=== PATIENT | female | born 1995 | race African-American/Black ===

== ENCOUNTER 2017-03-30 22:16 | Emergency (ER) | payer MEDICAID ==
[2017-03-30] MEDS ORDERED: IBUPROFEN 800 MG TABLET PO ONE (22:59)
[2017-03-30] MEDS ORDERED: ONDANSETRON 4 MG TAB.RAPDIS PO ONE (23:08)
--- NOTE | 2017-03-30 23:11 | ER Document Report ---
HPI - HPI Patient complains to provider of: headache, body ache, sore throat, fatique, nausea Onset: This morning Onset/Duration: Sudden Quality of pain: Achy Severity: Severe Pain Level: 4 Context: Patient presents with multiple complaints including headache body aches sore throat tired and nauseated. She reports she vomited one time today. Reports symptoms started today. Patient works 2 jobs. Is unsure of any type of sick exposure. Denies fever and diarrhea. Denies cough, pain with void denies urinary frequency. Associated Symptoms: Body/muscle aches, Headache, Nausea, Vomiting, Sore throat Exacerbated by: Denies Relieved by: Denies Similar symptoms previously: No Recently seen / treated by doctor: No - REPRODUCTIVE LMP: 03-30-17 Reproductive: DENIES: : - DERM Skin Color: Normal Past Medical History - General Information source: Patient Last Menstrual Period: 03/04/17 - Social History Smoking Status: Unknown if Ever Smoked Cigarette use (# per day): No Frequency of alcohol use: None Drug Abuse: None Occupation: [employer] Lives with: Family - boyfriend Family History: Reviewed & Not Pertinent Patient has suicidal ideation: No Patient has homicidal ideation: No Pulmonary Medical History: Reports: Hx Asthma Renal/ Medical History: Denies: Hx Peritoneal Dialysis Psychiatric Medical History: Reports: Hx Anxiety, Hx Attention Deficit Hyperactivity Disorder Comment Only: Hx Depression - Patient denies a history of depression Surgical Hx: Negative - Immunizations Immunizations up to date: Yes Hx Diphtheria, Pertussis, Tetanus Vaccination: Yes Vertical Provider Document - CONSTITUTIONAL Agree With Documented VS: Yes Exam Limitations: No Limitations General Appearance: WD/WN, No Apparent Distress - nontoxic looking - INFECTION CONTROL TRAVEL OUTSIDE OF THE [place] IN LAST 30 DAYS: No - HEENT HEENT: Atraumatic, Normocephalic, Pharyngeal Erythema - tonsillar hypertrophy. negative: Conjuctival Injection, Pharyngeal Exudate, Tympanic Membrane Red, Tympanic Membrane Bulging - NECK Neck: Normal Inspection, Supple. negative: Lymphadenopathy-Left, Lymphadenopathy-Right - RESPIRATORY Respiratory: Breath Sounds Normal, No Respiratory Distress O2 Sat by Pulse Oximetry: 100 - CARDIOVASCULAR Cardiovascular: Regular Rhythm, Tachycardia - GI/ABDOMEN Gastrointestinal: Abdomen Soft, Abdomen Non-Tender - BACK Back: Normal Inspection - MUSCULOSKELETAL/EXTREMETIES Musculoskeletal/Extremeties: KETTY TERRAZAS - NEURO Level of Consciousness: Awake, Alert, Appropriate Motor/Sensory: No Motor Deficit - DERM Integumentary: Warm, Dry Course - Re-evaluation Re-evalutation: 03/30/17 23:51 Instructed on negative strep throat culture pending. Instructed on Motrin. Patient looks better resting quietly no distress. - Vital Signs Vital signs: Temp Pulse Resp BP Pulse Ox 100.1 F 109 H 16 126/81 H 100 03/30/17 22:21 03/30/17 22:21 03/30/17 22:21 03/30/17 22:21 03/30/17 22:21 Discharge - Discharge Clinical Impression: Body aches, Sore throat, Headache Condition: Stable Disposition: HOME, SELF-CARE Instructions: Headache ([facility]), Sore Throat ([facility]), Ibuprofen (General) ([facility]) Additional Instructions: *You have been evaluated for a body aches, sore throat, *Take medication as prescribed *Warm salt water gargles and throat lozenges for comfort *Change toothbrush after two days of antibiotics *Do not let anyone drink/eat after you *Good hand washing *Follow-up with a primary care provider *Return to ED for worsening condition change, needs Monitor your blood pressure. Your blood pressure was elevated today. This may be because you were anxious, in pain or because you need medication. It is important to follow up with your primary care provider for full evaluation. Prescriptions: Ibuprofen [Motrin 800 mg Tablet] 800 mg PO TID #30 tablet Forms: Elevated Blood Pressure
[2017-03-31] VITALS: BP 118/78
== END 2017-03-31 | disposition home or self-care (01) ==
LOC: ER 22:16
DX: J02.9 Acute pharyngitis, unspecified (principal); M79.1 Myalgia; R51 Headache; R11.0 Nausea; R53.83 Other fatigue
CPT/HCPCS: 99284; 87070; 87880; J3490; S0119

== ENCOUNTER 2018-04-03 21:18 | Outpatient (CLI) | payer MEDICAID ==
[2018-04-03 22:18] LABS: APPEARANCE,URINE SLIGHTLY-CLOUDY; BILIRUBIN,URINE NEGATIVE (NEGATIVE); COLOR,URINE YELLOW; GLUCOSE, URINE NEGATIVE (NEGATIVE); KETONES,URINE TRACE mg/dL (NEGATIVE); LEUKOCYTE ESTERASE,URINE LARGE (NEGATIVE); NITRITE,URINE NEGATIVE (NEGATIVE); PROTEIN,URINE NEGATIVE (NEGATIVE); URINE SPECIFIC GRAVITY 1.014
[2018-04-03 22:33] LABS: URINE AMPHETAMINES SCREEN NEGATIVE; URINE BARBITURATES SCREEN NEGATIVE; URINE BENZODIAZEPINES SCREEN NEGATIVE; URINE COCAINE SCREEN NEGATIVE; URINE MARIJUANA (THC) SCREEN NEGATIVE; URINE METHADONE SCREEN NEGATIVE; URINE PHENCYCLIDINE SCREEN NEGATIVE
[2018-04-04] MEDS ORDERED: HYDROXYZINE PAMOATE 50 MG CAPSULE PO ONE (00:57)
[2018-04-04] MEDS ORDERED: HYDROXYZINE PAMOATE 50 MG CAPSULE ONE (01:36)
--- NOTE | 2018-04-04 03:27 | Non Stress Test Report ---
Non Stress Test Datetime Report Generated by CPN: 04/04/2018 03:27 DEMOGRAPHIC EGA NST: 39.1 INDICATION Indication for Study: Ordered by Provider Indication for Study (NST) Other: LC URINE RESULTS Urine Protein, NST: Negative Urine Ketones - NST: Positive Urine Glucose - NST: Negative Urine Blood - NST: Negative MONITORING Time on Monitor: 04/03/2018 21:41 Time off Monitor: 04/04/2018 01:37 NST Duration: 236 NST INTERVENTIONS NST Interventions: PO Hydration Physician Notified NST: George BABY A: [id number] BABY A Movement : Present Contraction Frequency : 1-5, irregular FHR Baseline : 140 Accelerations : 15X15 Decelerations : None Variability : Moderate 6-25bpm NST Review: Meets Criteria for Reactive NST NST Review: Meets Criteria for Reactive NST NST Review and Verified By : ISAURO Angealhawa NST Results: Reactive NST COMMENTS NST Comments: Dr George on unit, strip reviewed by Dr George. NST REPORT Report Trigger: Send Report
== END 2018-04-04 01:46 | disposition home or self-care (01) ==
LOC: LC 21:18
PROVIDERS: ATTEND Obstetrics & Gynecology
PROC: 4A1HXCZ Monitoring of Products of Conception, Cardiac Rate, External Approach (ICD-10-PCS; principal; 2018-04-03)
DX: O47.1 False labor at or after 37 completed weeks of gestation (principal); Z3A.39 39 weeks gestation of pregnancy
CPT/HCPCS: 59025; 81005; 87077; 87081; 80307; J3490

== ENCOUNTER 2018-04-08 16:33 | Outpatient (CLI) | payer MEDICAID ==
[2018-04-08 17:31] LABS: APPEARANCE,URINE CLEAR; BILIRUBIN,URINE NEGATIVE (NEGATIVE); COLOR,URINE YELLOW; GLUCOSE, URINE NEGATIVE (NEGATIVE); KETONES,URINE NEGATIVE (NEGATIVE); LEUKOCYTE ESTERASE,URINE SMALL (NEGATIVE); NITRITE,URINE NEGATIVE (NEGATIVE); PROTEIN,URINE NEGATIVE (NEGATIVE); URINE SPECIFIC GRAVITY 1.006; UROBILINOGEN,URINE NEGATIVE mg/dL (<2.0)
[2018-04-08 17:53] LABS: URINE AMPHETAMINES SCREEN NEGATIVE; URINE BARBITURATES SCREEN NEGATIVE; URINE BENZODIAZEPINES SCREEN NEGATIVE; URINE COCAINE SCREEN NEGATIVE; URINE MARIJUANA (THC) SCREEN NEGATIVE; URINE METHADONE SCREEN NEGATIVE; URINE PHENCYCLIDINE SCREEN NEGATIVE
--- NOTE | 2018-04-08 19:05 | Non Stress Test Report ---
Non Stress Test Datetime Report Generated by CPN: 04/08/2018 19:05 DEMOGRAPHIC EGA NST: 39.5 INDICATION Indication for Study: Ordered by Provider Indication for Study (NST) Other: LABOR CHECK VITAL SIGNS Temperature - NST: 98.2 Pulse - NST: 90 RESP - NST: 18 NBPSYS NST: 127 NBPDIA NST: 70 MONITORING Monitor Explained: Monitor Explained; Test Explained; Patient Verbalized Understanding Time on Monitor: 04/07/2018 16:49 Time off Monitor: 04/08/2018 18:15 NST Duration: 1526 NST INTERVENTIONS NST Interventions: PO Hydration; Reposition Patient Physician Notified NST: DR GEE Physician Notified NST: Dr Gee BABY A: [id number] BABY A Movement : Present Contraction Frequency : irregular FHR Baseline : 135 Accelerations : 15X15 Decelerations : None Variability : Moderate 6-25bpm NST Review: Meets Criteria for Reactive NST NST Review and Verified By : SHIN VERA, RN NST Results: Reactive NST REPORT Report Trigger: Send Report
== END 2018-04-08 19:42 | disposition home or self-care (01) ==
LOC: LC 16:33
PROVIDERS: ATTEND Student in an Organized Health Care Education/Training Program
PROC: 4A1HXCZ Monitoring of Products of Conception, Cardiac Rate, External Approach (ICD-10-PCS; principal; 2018-04-08)
DX: O47.1 False labor at or after 37 completed weeks of gestation (principal); Z3A.39 39 weeks gestation of pregnancy
CPT/HCPCS: 80307; 81005

== ENCOUNTER 2018-04-09 10:29 | Inpatient (IN) | payer MEDICAID ==
[2018-04-09] MEDS ORDERED: RINGERS SOLUTION,LACTATED 1,000 ML IV PRN (11:33)
[2018-04-09] MEDS ORDERED: RINGERS SOLUTION,LACTATED 300 ML IV ONE (11:33)
[2018-04-09] MEDS ORDERED: OXYTOCIN/NORMAL SALINE 20 UNIT/1,000 ML RTUINJ IV PRN ×3 (11:33→16:36)
[2018-04-09] MEDS ORDERED: DINOPROSTONE 10 MG VAGINAL INSERT.SR PV PRN (11:33)
[2018-04-09] MEDS ORDERED: LABETALOL HCL INJ 20 MG/4 ML DISP.SYRIN IV PRN (11:38)
[2018-04-09] MEDS ORDERED: DINOPROSTONE 10 MG VAGINAL INSERT.SR ONE (11:53)
--- NOTE | 2018-04-09 12:34 | Non Stress Test Report ---
Non Stress Test Datetime Report Generated by CPN: 04/09/2018 12:34 DEMOGRAPHIC EGA NST: 39.6 INDICATION Indication for Study: Ordered by Provider MONITORING Monitor Explained: Monitor Explained; Test Explained; Patient Verbalized Understanding Time on Monitor: 04/09/2018 10:51 Time off Monitor: 04/09/2018 12:31 NST Duration: 100 NST INTERVENTIONS NST Interventions: None Physician Notified NST: Dr Shaker BABY A: [id number] BABY A Movement : Present Contraction Frequency : 2-3 FHR Baseline : 135 Accelerations : 15X15 Decelerations : None Variability : Moderate 6-25bpm NST Review: Meets Criteria for Reactive NST NST Review and Verified By : Aidan Combs RN NST Results: Reactive NST REPORT Report Trigger: Send Report
[2018-04-09] MEDS ORDERED: MORPHINE SULFATE 10 MG/ML INJ ONE (12:51)
[2018-04-09] MEDS ORDERED: PROMETHAZINE HCL INJ 25 MG/1 ML VIAL ONE (12:51)
[2018-04-09 13:03] LABS: HEMATOCRIT 33.5 % (36.0-47.0); HEMOGLOBIN 10.9 g/dL (12.0-15.5); MEAN CORPUSCULAR HEMOGLOBIN 25.7 pg (27.0-33.4); MEAN CORPUSCULAR HGB CONC 32.6 g/dL (32.0-36.0); MEAN CORPUSCULAR VOLUME 79 fl (80-97); PLATELET COUNT 196 10^3/uL (150-450); RED BLOOD COUNT 4.26 10^6/uL (3.72-5.28); RED CELL DISTRIBUTION WIDTH 17.9 % (11.5-14.0)
[2018-04-09 13:04] LABS: APPEARANCE,URINE SLIGHTLY-CLOUDY; BILIRUBIN,URINE NEGATIVE (NEGATIVE); COLOR,URINE YELLOW; GLUCOSE, URINE NEGATIVE (NEGATIVE); KETONES,URINE NEGATIVE (NEGATIVE); LEUKOCYTE ESTERASE,URINE TRACE (NEGATIVE); NITRITE,URINE NEGATIVE (NEGATIVE); PROTEIN,URINE 100 mg/dL (NEGATIVE); URINE SPECIFIC GRAVITY 1.015
[2018-04-09 13:19] LABS: URINE AMPHETAMINES SCREEN NEGATIVE; URINE BARBITURATES SCREEN NEGATIVE; URINE BENZODIAZEPINES SCREEN NEGATIVE; URINE COCAINE SCREEN NEGATIVE; URINE MARIJUANA (THC) SCREEN NEGATIVE; URINE METHADONE SCREEN NEGATIVE; URINE PHENCYCLIDINE SCREEN NEGATIVE
[2018-04-09 13:22] LABS: ALANINE AMINOTRANSFERASE 20 U/L (9-52); ALBUMIN 3.5 g/dL (3.5-5.0); ALKALINE PHOSPHATASE 216 U/L (38-126); ANION GAP 11 (5-19); ASPARTATE AMINO TRANSFERASE 20 U/L (14-36); BILIRUBIN,DIRECT 0.3 mg/dL (0.0-0.4); BILIRUBIN,TOTAL 0.6 mg/dL (0.2-1.3); BLOOD UREA NITROGEN 6 mg/dL (7-20); CALCIUM 9.1 mg/dL (8.4-10.2); CARBON DIOXIDE 21 mmol/L (22-30); CHLORIDE 108 mmol/L (98-107); GLUCOSE 78 mg/dL (75-110); LDH OLD 488 U/L (313-618); POTASSIUM 4.2 mmol/L (3.6-5.0); SODIUM 140.1 mmol/L (137-145); TOTAL PROTEIN 6.5 g/dL (6.3-8.2); URIC ACID 6.8 mg/dL (2.5-6.2)
[2018-04-09] MEDS ORDERED: PROMETHAZINE HCL INJ 25 MG/1 ML VIAL IV ONE (14:00)
[2018-04-09] MEDS ORDERED: MORPHINE SULFATE 10 MG/ML INJ IV ONE (14:00)
[2018-04-09] MEDS ORDERED: PHENYLEPHRINE HCL INJ/PF 10 MG/1 ML SDV ONE (15:48)
[2018-04-09] MEDS ORDERED: EPHEDRINE SULFATE INJ 50 MG/1 ML AMPULE ONE (15:48)
[2018-04-09] MEDS ORDERED: FENTANYL CITRATE INJ/PF 100 MCG/2 ML AMPUL ONE (15:48)
[2018-04-09] MEDS ORDERED: FENTANYL/BUPIVACAINE/NS/PF 300 MCG/150 ML RTUINJ EPI ONE (15:49)
[2018-04-09] MEDS ORDERED: BUPIVACAINE HCL 0.25 % INJ/PF (2.5 MG/1 ML) 30 ML VIAL ONE (15:49)
--- NOTE | 2018-04-09 16:53 | L&D Progress Notes ---
PROGRESS NOTES Datetime Report Generated by CPN: 04/09/2018 16:53 PROGRESS NOTE Plan: Continue Present Management; Augmentation; Induction Informed Consent Obtained: Vaginal Delivery Vital Signs : Reviewed Vital Signs Comments: severe BP ranges Comment: pt seen and examined. Pt had epidural. comfortable now. AROM attempted. clear minimal fluid return. iupc placed. head well applied to cervix. no cords palpated. pt had one late decel s/p arom. repositioned and renormalized to baseline. continue augmentation. pit 4x4 q20 mins. Comment: pt seen and examined. has complained of further vaginal pressure and abdominal pain ever since cervidil placement. nursing staff checked cervix: 60/-1. pt did receive IV labetalol 20 mg x1 for BP 180/116. pt was in a lot of pain. if persistent elevated BP once epidural placed and have to spot BP with meds multiple times, i would recommend mag sulfate for seizure prophylaxis. Once epidural placed, will arom patient and initiate pitocin 4x4 q20 mins VAGINAL EXAM Dilatation: 5 Effacement: 60 Station: -1 Contractions: ctx q1-2 mins MEMBRANES Membranes: Ruptured Membranes: Intact Amniotic Fluid Color: Clear FETUS A FHR - Baseline: 135 FHR - Baseline: 135 Variability: Moderate 6-25bpm Accelerations: 15X15 Decelerations: Early; Late Decelerations: Early FHR Category: Category II FHR Category: Category I SIGNATURE SIGNATURE: [id number];[id number] SIGNATURE: [id number] SIGNATURE: [id number] SIGNATURE: [id number] Signature: with User ID: [email or web address] : with User ID: [email or web address]
--- NOTE | 2018-04-09 18:15 | HISTORY AND PHYSICAL E ---
History and Physical NAME: JAMEL MCQUEEN : 1995 AGE: 23Y ADMITTED: 04/09/2018 ROOM: LR200 HISTORY OF PRESENT ILLNESS: The patient is G1 at 39 and 6 weeks, who presented to labor and delivery with onset of contractions and abdominal pain, who had a history of bacterial vaginosis and candidiasis, where she has not initiated her treatment for candidiasis. However, patient presented with contractions every 1 to 3 minutes and a cervical exam at 1, 50, -3. On her vital signs, it was noted her blood pressures were in the severe range, in the 150s to 160s/100s. Patient was admitted for medical induction of labor. She denied any vaginal bleeding or leakage of fluid, and reported good movement. PAST OBSTETRICAL HISTORY: G1 current. Very limited care since [place]. PAST MEDICAL HISTORY: None. PAST SURGICAL HISTORY: None. ALLERGIES: No known drug allergies. MEDICATIONS: vitamins. SOCIAL HISTORY: Denies smoking, drinking or illicit drug use. PHYSICAL EXAMINATION: VITAL SIGNS: Blood pressure 155/99, pulse of 90, respiration rate of 16, temperature of 98.2. heart tones 130s beats per minute. Positive accels with positive early decels currently and no late decelerations. Moderate variability. Tocometer contractions every 1 to 3 minutes. PELVIC: Vaginal exam per nursing staff, 1, 50 and -3. ASSESSMENT: G1 at 39 and 6, with elevated blood pressures. PLAN: 1. Admit to labor and delivery for medical induction of labor. 2. Spot blood pressure. If becomes in severe range, with blood pressure range of 160 systolic and a diastolic range of 110 or above with labetalol 20 mg IV q.20 minutes. If persistent, more than 3 elevated blood pressures, I would recommend initiating magnesium sulfate for seizure prophylaxis. 3. Also recommend initiating medical induction with Cervidil. Patient, upon my dictation of the H and P, did receive Cervidil and has had it for a few hours, and was complaining of more pain. Nursing staff has checked her cervix, and it has advanced to 3 cm currently and 60% effacement and -1 station. Patient is currently jamie every 1 to 2 minutes, and there are early decelerations on the monitor, as well. 4. GBS status is negative. 5. Anticipate once patient is comfortable with her epidural, to go ahead and artificially rupture her membranes and augment labor and anticipate vaginal delivery. DICTATING PHYSICIAN: Sandra Jaeger MD [id number] PHY#: [id number] ID: [id number] JOB#: [id number] ACCT: [id number] cc:Sandra Jaeger > [facility]RIC CENTERCharlie
[2018-04-09] MEDS ORDERED: MISOPROSTOL 0.2 MG TABLET ONE (19:49)
[2018-04-09] MEDS ORDERED: OXYTOCIN/NORMAL SALINE 20 UNIT/1,000 ML RTUINJ ONE ×2 (19:49→21:10)
[2018-04-09] MEDS ORDERED: LIDOCAINE 1% INJ-PF (10 MG/ML) 30 ML SDV ONE (19:49)
[2018-04-09] MEDS ORDERED: DIPHENHYDRAMINE HCL 50 MG/ML VIAL IV PRN (23:19)
[2018-04-09] MEDS ORDERED: DIPHENHYDRAMINE HCL 50 MG/ML VIAL ONE (23:22)
[2018-04-10] MEDS ORDERED: MAGNESIUM SULFATE PF/INJ 40 MEQ/10 ML SDV IV ONE (00:04)
[2018-04-10] MEDS ORDERED: MAGNESIUM SULFATE 4 GM/100 ML RTUPB IV ONE ×2 (00:05→00:10)
[2018-04-10] MEDS ORDERED: MAGNESIUM SULFATE 20 GM/500 ML RTUINJ IV ONE ×2 (00:11→11:39)
[2018-04-10] MEDS ORDERED: LABETALOL HCL INJ 200 MG/40 ML VIAL IV ONE (00:19)
[2018-04-10] MEDS ORDERED: LIDOCAINE 2%/EPINEPHRINE INJ 20 ML VIAL ONE ×2 (00:52→05:06)
[2018-04-10] MEDS ORDERED: SODIUM BICARBONATE 8.4% INJ 50 MEQ/50 ML DISP.SYRIN ONE ×2 (00:52→05:06)
[2018-04-10] MEDS ORDERED: FENTANYL/BUPIVACAINE/NS/PF 300 MCG/150 ML RTUINJ EPI ONE (01:06)
[2018-04-10] MEDS: MAGNESIUM SULFATE 20 GM/500 ML RTUINJ IV PRN ×2 (01:20→12:29)
[2018-04-10] MEDS ORDERED: GENTAMICIN SULFATE INJ 80 MG/2 ML VIAL IV SCH ×2 (01:45→14:00)
[2018-04-10] MEDS ORDERED: CLINDAMYCIN 900 MG/D5W RTU 0 MG/0 ML RTUPB IV ONE (01:53)
[2018-04-10] MEDS ORDERED: AMPICILLIN SOD INJ 2 GM VIAL IM ONE (02:00)
[2018-04-10] MEDS ORDERED: GENTAMICIN SULFATE IV SCH (02:00)
[2018-04-10] MEDS ORDERED: AMPICILLIN SOD INJ 2 GM VIAL IV SCH (02:00)
[2018-04-10] MEDS ORDERED: WATER IV SCH (02:00)
[2018-04-10] MEDS ORDERED: DEXTROSE 5% IV SCH (02:00)
[2018-04-10] MEDS: CLINDAMYCIN 900 MG/D5W RTU 900 MG/50 ML RTUPB IV SCH ×3 (02:01→17:39)
[2018-04-10] MEDS ORDERED: AMPICILLIN SOD INJ 2 GM VIAL ONE ×4 (03:09→20:20)
[2018-04-10] MEDS: AMPICILLIN SODIUM 2 GM in NORMAL SALINE 100 ML IV SCH ×4 (03:13→20:24)
[2018-04-10] MEDS ORDERED: GENTAMICIN SULFATE INJ 80 MG/2 ML VIAL ONE (04:01)
[2018-04-10] MEDS ORDERED: CITRIC ACID/SODIUM CITRATE ORAL SOLN 15 ML UDCUP ONE ×2 (04:53→05:05)
[2018-04-10] MEDS ORDERED: CEFAZOLIN 1 GM/D5W RTU 2 GM/100 ML RTUPB IV ONE (04:57)
[2018-04-10] MEDS ORDERED: FAMOTIDINE INJ/PF 20 MG/2 ML SDV IV ONE (05:06)
[2018-04-10] MEDS ORDERED: METOCLOPRAMIDE HCL INJ/PF 10 MG/2 ML SDV ONE (05:06)
[2018-04-10] MEDS ORDERED: OXYTOCIN/NORMAL SALINE 0 UNIT/0 ML RTUINJ ONE (05:14)
[2018-04-10] MEDS ORDERED: OXYTOCIN 10 UNIT/ML VIAL ONE (05:14)
[2018-04-10] MEDS ORDERED: FENTANYL CITRATE INJ/PF 100 MCG/2 ML AMPUL ONE (05:15)
[2018-04-10] MEDS ORDERED: MIDAZOLAM 2 MG/2 ML INJ ONE (05:15)
[2018-04-10] MEDS ORDERED: MORPHINE SULFATE 10 MG/ML INJ ONE ×2 (05:15→07:08)
--- NOTE | 2018-04-10 05:33 | L&D Progress Notes ---
PROGRESS NOTES Datetime Report Generated by CPN: 04/10/2018 05:33 PROGRESS NOTE Impression: Arrest of Dilatation/Descent; Chorioamnionitis; Eclampsia - Severe Plan: Deliver- Section Informed Consent Obtained: Section Delivery; Risks, Benefits and Alternatives Discussed Comment: pt seen and examined. pt developed fever x2 and has been tachcardic. chorioamnionitis dx. initiated amp/gent/clinda. also pt developed elevated persistent severe BP readings. dx of pre-eclampsia with severe features. magnesium sulfate initiated for seizure prophylaxis. pt had SVE 7-8cm dilated for almost 7 hours with adequate and inadequate ctxs. dx of arrest of dilation and descent. recommend c/section. pt agreed to proceed. consent obtained. risks of bleeding requiring transfusion, injury to bowel or bladder and risk of chyst discussed and other potential complications. will continue PP mag x24 hours. will continue amp/gent/clinda x24 hrs pp. FETUS A FHR - Baseline: 135 Variability: Moderate 6-25bpm Accelerations: 15X15 Decelerations: Early FHR Category: Category I FETUS C SIGNATURE: [id number];[id number] Signature: with User ID: [email or web address] : with User ID: [email or web address]
[2018-04-10] MEDS ORDERED: BUPIVACAINE HCL 0.5 % INJ/PF 30 ML SDV ONE (06:19)
[2018-04-10] MEDS ORDERED: DIPH/PERTUSS(ACELL)/TETANUS VAC/PF 0.5 ML SYR (>=10YO) IM PRN (06:33)
[2018-04-10] MEDS ORDERED: PROMETHAZINE HCL INJ 25 MG/1 ML VIAL IV PRN (06:33)
[2018-04-10] MEDS ORDERED: OXYCODONE-ACETAMINOPHEN 5-325 MG TABLET PO PRN (06:33)
[2018-04-10] MEDS ORDERED: OXYTOCIN/NORMAL SALINE 20 UNIT/1,000 ML RTUINJ IV PRN (06:33)
[2018-04-10] MEDS ORDERED: MORPHINE SULFATE 10 MG/ML INJ IM PRN (06:33)
[2018-04-10] MEDS ORDERED: ACETAMINOPHEN 325 MG TABLET PO PRN (06:33)
[2018-04-10] MEDS ORDERED: MEASLES,MUMPS&RUBELLA VACC/PF 0.5 ML VIAL SUBCUT PRN (06:33)
[2018-04-10] MEDS ORDERED: ACETAMINOPHEN 1,000 MG/100 ML RTUPB IV ONE (06:52)
[2018-04-10] MEDS ORDERED: HYDROMORPHONE HCL INJ/PF 2 MG/ML AMPULE ONE ×3 (07:44→19:52)
[2018-04-10] MEDS ORDERED: AMPICILLIN SOD INJ 2 GM VIAL IM SCH (09:00)
--- NOTE | 2018-04-10 09:00 | OPERATIVE REPORT E ---
Operative Report NAME: JAMEL MCQUEEN : 1995 AGE: 23Y DATE OF SURGERY: 04/10/2018 ROOM: LR200 PREOPERATIVE DIAGNOSES: 1. INTRAUTERINE AT 40 WEEKS GESTATIONAL AGE. 2. ARREST OF DILATION AND DESCENT. 3. CHORIOAMNIONITIS. 4. PREECLAMPSIA, SEVERE FEATURES. POSTOPERATIVE DIAGNOSES: 1. INTRAUTERINE AT 40 WEEKS GESTATIONAL AGE. 2. ARREST OF DILATION AND DESCENT. 3. CHORIOAMNIONITIS. 4. PREECLAMPSIA, SEVERE FEATURES. OPERATION: Primary low-transverse section via Pfannenstiel. SURGEON: Sandra Jaeger MD ANESTHESIA: Epidural. COMPLICATIONS: None. ESTIMATED BLOOD LOSS: 900 mL. FLUIDS: 1100 mL. URINE OUTPUT: 200 mL clear urine. INDICATIONS: This is a G1F, who was admitted at 39 weeks and 6 days for elevated blood pressures that have been persistently in the severe range. She has spotted with labetalol a couple of times and she instituted with magnesium sulfate for seizure prophylaxis with the diagnosis of preeclampsia with severe features. Throughout her course of medical induction of labor, she developed chorioamnionitis. She was instituted on amp/gent/clinda due to maternal fever x2 and maternal tachycardia being persistent. Also, throughout her induction, she arrested at 7-8 cm dilation with adequate MVUs on the monitor for at least 6 hours. The patient was consent to procedure and taken back to the operating room, consented for the procedure for the , including but not limited to bleeding, infection, injury to surrounding organs and tissue, bleeding requiring transfusion of blood products, and hysterectomy if other medical and surgical interventions fail. The patient understood and consented and agreed to proceed to the operating room. FINDINGS: Viable female infant, cephalic presentation, nuchal cord x1. Pediatrics present at deliver. 8 and 9. Normal uterus, tubes and ovaries bilaterally. PROCEDURE: The patient was taken to the operating room, where epidural anesthesia was found to be adequate. She was prepped and draped in the normal sterile fashion, in the dorsal supine position with a leftward tilt. A Pfannenstiel skin incision was made with the scalpel, carried through the underlying layer of the fascia with a Bovie. The fascia was then incised in the midline and excision extended laterally with the Treadwell scissors. The superior aspect of the fascial incision was grasped with the Tess clamps, elevating underlying rectus muscle, dissected bluntly. Attention was then turned to the inferior aspect of the incision, which in a similar fashion grasped and tented up with the Tess clamps. The rectus muscle dissected bluntly. The rectus muscle in the midline. Peritoneum identified, tented up and entered with Metzenbaum scissors. The new incision was then extended superiorly and inferiorly with good visualization of the bladder. Bladder blade was inserted. Peritoneum identified and entered with Metzenbaum and incision was extended laterally. The bladder flap was created. The bladder blade was inserted and the lower uterine segment incised in transverse fashion. Uterine incision was then extended cephalad to caudally with traction. Bladder blade removed. Infant's head then delivered atraumatically. Nose and mouth were suctioned with bulb suction and the cord was clamped and cut. The infant was handed off to the awaiting pediatric team. The placenta was then removed manually. Uterus was exteriorized and cleared of all clots and debris. The uterine incision was repair with 1-0 chromic in a running lock fashion. Second layer of 1-0 Monocryl was used to obtain an imbricating layer and to obtain excellent hemostasis. The gutters were cleared of all clots and debris. FloSeal was injected over the incision for prophylactic measures. The peritoneum was closed with 1-0 Monocryl in a horizontal mattress. The fascia was closed with 0 Vicryl in running fashion. The skin was closed in subcuticular fashion with 4-0 Vicryl. Then 0.5% Marcaine was injected around the incision for postoperative pain control. The patient tolerated the procedure well. Sponge, lap and needle counts were correct x2. The patient did receive antibiotics preoperatively. The patient was taken to the recovery room in stable condition. DICTATING PHYSICIAN: Sandra Jaeger MD [id number] PHY#: [id number] ID: [id number] JOB#: [id number] ACCT: [id number] cc:Sandra Jaeger >
[2018-04-10] MEDS ORDERED: CLINDAMYCIN 900 MG/D5W RTU 900 MG/50 ML RTUPB IV ONE ×3 (10:17→17:35)
[2018-04-10] MEDS ORDERED: PROMETHAZINE HCL INJ 25 MG/1 ML VIAL ONE (11:38)
[2018-04-10] MEDS ORDERED: PRENATAL VITAMIN W DHA CAPSULE PO ONE (11:39)
[2018-04-10] MEDS ORDERED: DOCUSATE SODIUM 100 MG CAPSULE ONE ×2 (11:39→17:35)
[2018-04-10] MEDS: PRENATAL VITAMIN W DHA CAPSULE PO SCH (11:55)
[2018-04-10] MEDS: DOCUSATE SODIUM 100 MG CAPSULE PO SCH ×2 (11:56→17:38)
[2018-04-10] MEDS ORDERED: WATER IV ONE (15:00)
[2018-04-10] MEDS ORDERED: GENTAMICIN SULFATE IV ONE (15:00)
[2018-04-10] MEDS ORDERED: DEXTROSE 5% IV ONE (15:00)
[2018-04-10] MEDS ORDERED: OXYCODONE-ACETAMINOPHEN 5-325 MG TABLET ONE (17:08)
[2018-04-10] MEDS ORDERED: MAGNESIUM SULFATE 20 GM/500 ML RTUINJ IV PRN (19:03)
[2018-04-10] MEDS: HYDROMORPHONE HCL INJ/PF 2 MG/ML AMPULE IV PRN (19:54)
[2018-04-10] MEDS: WATER IV SCH (21:57)
[2018-04-10] MEDS: GENTAMICIN SULFATE IV SCH (21:57)
[2018-04-10] MEDS: DEXTROSE 5% IV SCH (21:57)
[2018-04-11] MEDS ORDERED: HYDROMORPHONE HCL INJ/PF 2 MG/ML AMPULE ONE (00:03)
[2018-04-11] MEDS: HYDROMORPHONE HCL INJ/PF 2 MG/ML AMPULE IV PRN (00:07)
[2018-04-11] MEDS ORDERED: CLINDAMYCIN 900 MG/D5W RTU 900 MG/50 ML RTUPB IV ONE (00:54)
[2018-04-11] MEDS: CLINDAMYCIN 900 MG/D5W RTU 900 MG/50 ML RTUPB IV SCH (00:58)
[2018-04-11] MEDS ORDERED: AMPICILLIN SOD INJ 2 GM VIAL ONE (01:56)
[2018-04-11] MEDS: AMPICILLIN SODIUM 2 GM in NORMAL SALINE 100 ML IV SCH (02:00)
[2018-04-11] MEDS ORDERED: MAGNESIUM SULFATE 20 GM/500 ML RTUINJ IV ONE (02:07)
[2018-04-11] MEDS: WATER IV SCH (05:56)
[2018-04-11] MEDS: GENTAMICIN SULFATE IV SCH (05:56)
[2018-04-11] MEDS: DEXTROSE 5% IV SCH (05:56)
--- NOTE | 2018-04-11 06:28 | L&D Progress Notes ---
PROGRESS NOTES Datetime Report Generated by CPN: 04/11/2018 06:28 PROGRESS NOTE Impression Other: PreE Comment: Pt now on Magnesium for 24 hours postop. Ok to stop magnesium as pt with mild range BPs and with excellent diuresis. Procardia XL 30mg ordered for BP. will discontinue abx as well since pt has been on them for 24 hours. bleeding under control. Pain well controlled. Exam benign. Pt will transfer to the floor. FETUS C SIGNATURE: [id number] Signature: with User ID: [email or web address]
[2018-04-11 06:55] LABS: HEMATOCRIT 23.3 % (36.0-47.0); MEAN CORPUSCULAR HEMOGLOBIN 26.3 pg (27.0-33.4); MEAN CORPUSCULAR HGB CONC 33.9 g/dL (32.0-36.0); MEAN CORPUSCULAR VOLUME 78 fl (80-97); PLATELET COUNT 157 10^3/uL (150-450); RED BLOOD COUNT 2.99 10^6/uL (3.72-5.28); RED CELL DISTRIBUTION WIDTH 17.9 % (11.5-14.0); WHITE BLOOD COUNT 9.4 10^3/uL (4.0-10.5)
[2018-04-11 06:59] LABS: HEMOGLOBIN 7.9 g/dL (12.0-15.5)
[2018-04-11] MEDS ORDERED: OXYCODONE-ACETAMINOPHEN 5-325 MG TABLET ONE (07:26)
[2018-04-11] MEDS: OXYCODONE-ACETAMINOPHEN 5-325 MG TABLET PO PRN ×4 (07:29→21:21)
[2018-04-11] MEDS ORDERED: NIFEDIPINE 30 MG TAB.ER.24 PO ONE ×2 (07:45)
[2018-04-11] MEDS ORDERED: SIMETHICONE 80 MG TAB.CHEW ONE (08:30)
[2018-04-11] MEDS: SIMETHICONE 80 MG TAB.CHEW PO PRN (08:31)
--- NOTE | 2018-04-11 08:40 | PDOC PROGRESS REPORT ---
Subjective-OB Progress Note for:: 04/11/18 Subjective: reports well. tolerating diet, bleeding minimal. recently took percocet for pain, denies MELTON/visual changes/RUQ pain. Physical Exam (OB) Vital Signs: Intake & Output 04/10/18 04/11/18 04/12/18 06:59 06:59 06:59 Weight 74.8 kg - Dressing Removed: No Incision: Open, Well Approximated - Abdomen Description: Tender, Round Bowel Sounds: Hyperactive Stool: No Fundal Height: u/u - u/2 - Extremities Lower extremities: Gennaro's sign - neg Calf: Normal, Nontender Objective-Diagnostic Laboratory: 04/11/18 06:23 04/09/18 12:29 04/11/18 06:23 WBC 9.4 RBC 2.99 L Hgb 7.9 L D Hct 23.3 L MCV 78 L MCH 26.3 L MCHC 33.9 RDW 17.9 H Plt Count 157 Assessment and Plan(PN) - Assessment and Plan (1) Delivery by section of full-term infant Is this a current diagnosis for this admission?: Yes (2) Preeclampsia Is this a current diagnosis for this admission?: Yes - Time Spent with Patient Time with patient: Less than 15 minutes Medications reviewed and adjusted accordingly: Yes - Disposition Anticipated Discharge: Home Within: within 48 hours
--- NOTE | 2018-04-11 08:45 | Delivery Summary ---
Del Sum A-C Datetime Report Generated by CPN: 04/11/2018 08:44 DELIVERY PERSONNEL DELIVERY PERSONNEL: [id number] Delivery Doctor:: Sandra Jaeger MD Anesthesiologist:: Anitha Garner MD PLANT PRODUCTION WORKER:: Tono Garnett CRNA Labor and Delivery Nurse:: Yamile Dos Santos RN Quality Tech:: Yamile Dos Santos RN Neonatal Nurse Practitioner:: JOE Nelson Nursery Nurse:: Ayesha Andrade RN Residential Solar Consultant/INVESTMENT BANKING MANAGER: ST Yang Residential Solar Consultant/INVESTMENT BANKING MANAGER: ST Nirav Additional Personnel: : Tennille Nash CNA MATERNAL INFORMATION Delivery Anesthesia: Epidural Medications After Delivery: Pitocin Bolus-Please Comment Meds After Delivery Comment: pitocin 20 units/1000 mL NS bolus Maternal Complications: Chorioamnionitis; Other Complication Details: pre-E with severe features LABOR SUMMARY EDC: 04/10/2018 00:00 No. Babies in Womb: 1 Attempted: No Labor Anesthesia: Epidural LABOR INFORMATION Reason for Induction: Chronic Primary/Essential HTN; Pre-Eclampsia Onset of Labor: 04/09/2018 16:45 Cervical Ripening Agents: Cervidil Oxytocin: Augmentation Group B Beta Strep: negative Antibiotics # of Doses: 0 Antibiotics Time of Last Dose: n/a Steroids Given: None Reason Steroids Not Administered: Not Applicable MEMBRANES Membranes Rupture Method: Artificial Rupture of Membranes: 04/09/2018 16:44 Length of Rupture (hr): 13.02 Amniotic Fluid Color: Clear Amniotic Fluid Amount: Scant Amniotic Fluid Odor: Normal STAGES OF LABOR Stage 3 hr: 0 Stage 3 min: 1 Total Time in Labor hr: 13 Total Time in Labor min: 1 VAGINAL DELIVERY Episiotomy: None Laceration #1: None Laceration Extension #1: N/A Laceration Repair: Not Applicable Sponge Count Correct: N/A Sharps Count Correct: N/A CSECTION DELIVERY Primary Indication: Secondary Arrest of Dilatation Secondary Indication: Failed Induction CSection Urgency: Non-Scheduled CSection Incidence: Primary Labor: Labor Elective: Nonelective CSection Incision: Lower Uterine Transverse BABY A INFORMATION Infant Delivery Date/Time: 04/10/2018 05:45 Method of Delivery: Born in Route : No : N/A Forceps: N/A Vacuum Extraction: N/A Shoulder Dystocia : No PRESENTATION/POSITION BABY A Presentation: Cephalic Cephalic Presentation: Vertex Breech Presentation: N/A PLACENTA INFORMATION BABY A Placenta Delivery Time : 04/10/2018 05:46 Placenta Method of Delivery: Expressed Placenta Status: Delivered SCORES BABY A Heart Rate 1 min: >100 bpm Resp Effort 1 min: Good Cry Reflex Irritability 1 min: Cough or Sneeze or Pulls Away Muscle Tone 1 min: Active Motion Color 1 min: Blue/Pale Resuscitation Effort 1 min: Tactile Stimulation SCORE 1 MIN: 8 Heart Rate 5 min: >100 bpm Resp Effort 5 min: Good Cry Reflex Irritability 5 min: Cough or Sneeze or Pulls Away Muscle Tone 5 min: Active Motion Color 5 min: Body [place], Extremities Blue Resuscitation Effort 5 min: Tactile Stimulation SCORE 5 MIN: 9 INFORMATION BABY A Gestational Age at Delivery: 40.0 Gestational Status: Full Term- 39- 40.6 Weeks Infant Outcome : Liveborn Condition : Stable Infant Sex: Female IDENTIFICATION BABY A Verification Date/Time: 04/10/2018 05:52 ID Band Number: [id number] Mother's Name Verified: Yes RN Verifying : Kobe Richards. RN Additional Verifying Personnel: Ring, B. RN WEIGHT/LENGTH BABY A Birthweight (gm): 3880 Weight (lb): 8 Infant Weight (oz): 9 Infant Length (in): 22.25 Length (cm): 56.52 CORD INFORMATION BABY A No. Cord Vessels: 3 Nuchal Cord- Other: body cord Cord Blood Taken: Yes-For Eval (Mom's Blood Type - or O+)
[2018-04-11] MEDS: DOCUSATE SODIUM 100 MG CAPSULE PO SCH ×2 (10:30→17:38)
[2018-04-11] MEDS: PRENATAL VITAMIN W DHA CAPSULE PO SCH (10:31)
[2018-04-12] MEDS: OXYCODONE-ACETAMINOPHEN 5-325 MG TABLET PO PRN ×4 (03:49→22:13)
--- NOTE | 2018-04-12 08:27 | PDOC PROGRESS REPORT ---
Subjective-OB Progress Note for:: 04/12/18 Subjective: Doing well, slow in getting out of bed, fatigue, breast Physical Exam (OB) Vital Signs: Temp Pulse Resp BP Pulse Ox 98.2 F 120 H 22 H 136/85 H 96 04/12/18 07:42 04/12/18 07:42 04/12/18 07:42 04/12/18 07:42 04/12/18 07:42 Intake & Output 04/11/18 04/12/18 04/13/18 06:59 06:59 06:59 Intake Total 800 Output Total 500 Balance 300 - PIH/Pre-Eclampsia DTR's: 1 + Clonus: Negative Headache: Absent Epigastric Pain: No Visual Changes: No - Dressing Removed: Yes Incision: Dressing Closure Type: Sutures - Bilateral Tubal Ligation Dressing Removed: No Site: Dressing, Well Approximated - Lochia Lochia Amount: Scant < 10 ml Lochia Color: Rubra/Red - Abdomen Description: Tender Hernia Present: No Fundal Description: Firm Fundal Height: u/3 - u/4 Objective-Diagnostic Laboratory: 04/11/18 06:23 04/09/18 12:29 Assessment and Plan(PN) - Assessment and Plan (1) Anemia due to blood loss, acute Is this a current diagnosis for this admission?: Yes (2) Preeclampsia Qualifiers: Trimester: third trimester Qualified Code(s): O14.93 - Unspecified pre- eclampsia, third trimester Is this a current diagnosis for this admission?: Yes (3) Delivery by section of full-term infant Is this a current diagnosis for this admission?: Yes (4) Arrest of dilation, delivered, current hospitalization Is this a current diagnosis for this admission?: Yes (5) Premature rupture of membranes Qualifiers: PROM onset of labor timing: onset of labor more than 24 hours following rupture PROM gestational age: unspecified gestational age Qualified Code(s) : O42.10 - Premature rupture of membranes, onset of labor more than 24 hours following rupture, unspecified weeks of gestation Is this a current diagnosis for this admission?: Yes - Time Spent with Patient Time with patient: Less than 15 minutes Medications reviewed and adjusted accordingly: Yes - Disposition Anticipated Discharge: Home Within: within 24 hours
[2018-04-12] MEDS ORDERED: NORMAL SALINE 250 ML IV PRN (08:34)
--- NOTE | 2018-04-12 08:37 | PDOC PROGRESS REPORT ---
Subjective-OB Progress Note for:: 04/12/18 Subjective: Pt tried to eat but was dizzy and felt nauseated Physical Exam (OB) Vital Signs: Temp Pulse Resp BP Pulse Ox 98.2 F 120 H 22 H 136/85 H 96 04/12/18 07:42 04/12/18 07:42 04/12/18 07:42 04/12/18 07:42 04/12/18 07:42 Intake & Output 04/11/18 04/12/18 04/13/18 06:59 06:59 06:59 Intake Total 800 Output Total 500 Balance 300 - PIH/Pre-Eclampsia DTR's: 1 + Clonus: Negative Headache: Absent Epigastric Pain: No Visual Changes: No - Dressing Removed: Yes Incision: Dressing Closure Type: Sutures - Bilateral Tubal Ligation Dressing Removed: No Site: Dressing, Well Approximated - Lochia Lochia Amount: Scant < 10 ml Lochia Color: Rubra/Red - Abdomen Description: Tender Hernia Present: No Fundal Description: Firm Fundal Height: u/3 - u/4 Objective-Diagnostic Laboratory: 04/11/18 06:23 04/09/18 12:29 Assessment and Plan(PN) - Assessment and Plan (1) Anemia due to blood loss, acute Is this a current diagnosis for this admission?: Yes (2) Preeclampsia Qualifiers: Trimester: third trimester Qualified Code(s): O14.93 - Unspecified pre- eclampsia, third trimester Is this a current diagnosis for this admission?: Yes (3) Delivery by section of full-term infant Is this a current diagnosis for this admission?: Yes (4) Arrest of dilation, delivered, current hospitalization Is this a current diagnosis for this admission?: Yes (5) Premature rupture of membranes Qualifiers: PROM onset of labor timing: onset of labor more than 24 hours following rupture PROM gestational age: unspecified gestational age Qualified Code(s) : O42.10 - Premature rupture of membranes, onset of labor more than 24 hours following rupture, unspecified weeks of gestation Is this a current diagnosis for this admission?: Yes - Time Spent with Patient Medications reviewed and adjusted accordingly: Yes - Disposition Anticipated Discharge: Home Disposition: Discussed low H&H with Dr. Butt and symptomatic, will give 2 units of blood, POC discussed with pt and she agrees
[2018-04-12] MEDS: DOCUSATE SODIUM 100 MG CAPSULE PO SCH ×2 (08:55→18:16)
[2018-04-12] MEDS: PRENATAL VITAMIN W DHA CAPSULE PO SCH (08:55)
[2018-04-12] MEDS: SIMETHICONE 80 MG TAB.CHEW PO PRN (08:55)
[2018-04-12 09:22] LABS: HEMATOCRIT 22.6 % (36.0-47.0); MEAN CORPUSCULAR HEMOGLOBIN 25.4 pg (27.0-33.4); MEAN CORPUSCULAR HGB CONC 32.8 g/dL (32.0-36.0); MEAN CORPUSCULAR VOLUME 77 fl (80-97); PLATELET COUNT 198 10^3/uL (150-450); RED BLOOD COUNT 2.92 10^6/uL (3.72-5.28); RED CELL DISTRIBUTION WIDTH 17.6 % (11.5-14.0); WHITE BLOOD COUNT 11.2 10^3/uL (4.0-10.5)
[2018-04-12 09:33] LABS: HEMOGLOBIN 7.4 g/dL (12.0-15.5)
[2018-04-13] MEDS: PRENATAL VITAMIN W DHA CAPSULE PO SCH (09:16)
[2018-04-13] MEDS: DOCUSATE SODIUM 100 MG CAPSULE PO SCH (09:16)
[2018-04-13] MEDS: SIMETHICONE 80 MG TAB.CHEW PO PRN (09:16)
[2018-04-13] MEDS ORDERED: NIFEDIPINE 30 MG TAB.ER.24 PO ONE (11:00)
--- NOTE | 2018-04-13 11:24 | PDOC DISCHARGE SUMMARY ---
Final Diagnosis Discharge Date: 04/13/18 - Final Diagnosis (1) Anemia due to blood loss, acute Is this a current diagnosis for this admission?: Yes (2) Arrest of dilation, delivered, current hospitalization Is this a current diagnosis for this admission?: Yes (3) Delivery by section of full-term Is this a current diagnosis for this admission?: Yes (4) Preeclampsia Is this a current diagnosis for this admission?: Yes (5) Premature rupture of membranes Is this a current diagnosis for this admission?: Yes Discharge Data - Discharge Medication Home Medications: Pnv 102/Iron/Folate 1/Dss/Dha [Vitafol Fe+ Docusate Combo Pck] 1 tab PO DAILY Reason(s) for Admission: Onset of Labor, Induction of Labor, Ceasarean Section- Primary, Obstetric Complications Procedures: NST Intrapartum Procedure(s): : Low Cervical, Transverse - Diagnosis Test Laboratory: Temp Pulse Resp BP Pulse Ox 98.4 F 107 H 12 146/100 H 99 04/13/18 08:55 04/13/18 09:57 04/13/18 08:55 04/13/18 09:57 04/13/18 09:57 04/09/18 04/09/18 04/11/18 12:20 12:29 06:23 RBC 4.26 2.99 L Hgb 10.9 L 7.9 L D Hct 33.5 L 23.3 L Urine Opiates Screen NEGATIVE 04/12/18 09:08 RBC 2.92 L Hgb 7.4 L Hct 22.6 L Urine Opiates Screen - Discharge information/Instructions Discharge Activity: Activity As Tolerated, Pelvic Rest Discharge Diet: Regular Disposition: HOME, SELF-CARE Follow up with: [facility] in: 1, Weeks
[2018-04-13 11:37] LABS: HEMATOCRIT 29.1 % (36.0-47.0); MEAN CORPUSCULAR HEMOGLOBIN 26.9 pg (27.0-33.4); MEAN CORPUSCULAR VOLUME 79 fl (80-97); PLATELET COUNT 234 10^3/uL (150-450); RED BLOOD COUNT 3.69 10^6/uL (3.72-5.28); WHITE BLOOD COUNT 9.2 10^3/uL (4.0-10.5)
[2018-04-13 11:39] LABS: HEMOGLOBIN 9.9 g/dL (12.0-15.5)
[2018-04-13 11:54] VITALS: BP 139/91
[2018-04-14] MEDS ORDERED: NIFEDIPINE 30 MG TAB.ER.24 PO SCH (10:00)
== END 2018-04-13 15:25 | disposition home or self-care (01) | DRG 765 ==
LOC: LC 10:29 → LR 11:33 → 2S 04-11 08:55
PROVIDERS: ADMIT Obstetrics & Gynecology; ATTEND Obstetrics & Gynecology
PROC: 10D00Z1 Extraction of Products of Conception, Low, Open Approach (ICD-10-PCS; principal; 2018-04-10)
DX: O62.0 Primary inadequate contractions (principal); O41.1230 Chorioamnionitis, third trimester, not applicable or unspecified; D62 Acute posthemorrhagic anemia; O14.14 Severe pre-eclampsia complicating childbirth; O69.81X0 Labor and delivery complicated by cord around neck, without compression, not applicable or unspecified; O99.02 Anemia complicating childbirth; O42.12 Full-term premature rupture of membranes, onset of labor more than 24 hours following rupture; Z3A.40 40 weeks gestation of pregnancy; Z37.0 Single live birth
CPT/HCPCS: 1961; 36415; 36430; 80053; 80307; 81005; 83615; 84550; 85027; 86592; 86850; 86900; 86901; 86920; 94799; J0131; J0290; J0690; J1170; J1200; J1580; J2250; J2270; J2370; J2550; J2590; J2765; J3010; J3475; J3490; P9016; S0028

== ENCOUNTER 2018-04-27 19:32 | Emergency (ER) | payer MEDICAID ==
[2018-04-27 19:43] VITALS: BP 133/86
[2018-04-27] MEDS ORDERED: HYDROCODONE/ACETAMINOPHEN 5-325 MG TABLET PO ONE (19:58)
--- NOTE | 2018-04-27 20:03 | ER Document Report ---
ED GI/ - General Chief Complaint: Post Surgical Pain Stated Complaint: ABDOMINAL PAIN Time Seen by Provider: 04/27/18 19:50 Mode of Arrival: Ambulatory Information source: Patient TRAVEL OUTSIDE OF THE [place] IN LAST 30 DAYS: No - HPI Patient complains to provider of: Abdominal pain, Pelvic pain Onset: Other - 2 weeks Timing/Duration: Worse Quality of pain: Achy, Pressure Severity at maximum: Moderate Severity in ED: Moderate Location: Suprapubic, Pelvis Associated symptoms: None Notes: 04/27/18 20:01 Patient is a 23-year-old female who is 2 weeks post op from coming to the emergency room today complaining of small amount of bleeding from her C- section incision and pain and pressure in her pelvis, she reports that she continues to have some mild vaginal bleeding, denies any fevers, no nausea, vomiting or diarrhea, she had a 1 week postop with her [employer] but was not having any incisional issues at that time, she denies dysuria - Related Data Allergies/Adverse Reactions: No Known Allergies Allergy (Verified 04/08/18 17:22) Past Medical History - General Information source: Patient - Social History Smoking Status: Unknown if Ever Smoked Family History: Reviewed & Not Pertinent Pulmonary Medical History: Reports: Hx Asthma Renal/ Medical History: Denies: Hx Peritoneal Dialysis Psychiatric Medical History: Reports: Hx Anxiety, Hx Attention Deficit Hyperactivity Disorder Comment Only: Hx Depression - Patient denies a history of depression - Immunizations Immunizations up to date: Yes Hx Diphtheria, Pertussis, Tetanus Vaccination: Yes Review of Systems - Review of Systems Constitutional: No symptoms reported EENT: No symptoms reported Cardiovascular: No symptoms reported Respiratory: No symptoms reported Gastrointestinal: No symptoms reported Genitourinary: No symptoms reported Female Genitourinary: See HPI Musculoskeletal: No symptoms reported Skin: No symptoms reported Hematologic/Lymphatic: No symptoms reported Neurological/Psychological: No symptoms reported -: Yes All other systems reviewed and negative Physical Exam - Vital signs Vitals: Temp Pulse Resp BP Pulse Ox 98.7 F 105 H 16 133/86 H 98 04/27/18 19:42 04/27/18 19:42 04/27/18 19:42 04/27/18 19:42 04/27/18 19:42 Interpretation: Normal - General General appearance: Appears well, Alert - HEENT Head: Normocephalic, Atraumatic Eyes: Normal Pupils: PERRL - Respiratory Respiratory status: No respiratory distress Chest status: Nontender Breath sounds: Normal Chest palpation: Normal - Cardiovascular Rhythm: Regular Heart sounds: Normal auscultation Murmur: No - Abdominal Inspection: Normal Distension: No distension Bowel sounds: Normal Tenderness: Other - and incision in the suprapubic region with mild tenderness, no erythema, no active drainage, centrally located is a small amount of dried blood, no active bleeding, no discharge, no areas of fluctuance or bashir dehiscence, suprapubic tenderness on palpation Organomegaly: No organomegaly - Back Back: Normal, Nontender - Extremities General upper extremity: Normal inspection, Nontender, Normal color, Normal ROM , Normal temperature General lower extremity: Normal inspection, Nontender, Normal color, Normal ROM , Normal temperature, Normal weight bearing. No: Gennaro's sign - Neurological Neuro grossly intact: Yes Cognition: Normal Orientation: AAOx4 [place] Coma Scale Eye Opening: Spontaneous [place] Coma Scale Verbal: Oriented [place] Coma Scale Motor: Obeys Commands [place] Coma Scale Total: 15 Speech: Normal Motor strength normal: LUE, RUE, LLE, RLE Sensory: Normal - Psychological Associated symptoms: Normal affect, Normal mood - Skin Skin Temperature: Warm Skin Moisture: Dry Skin Color: Normal Course - Vital Signs Vital signs: Temp Pulse Resp BP Pulse Ox 98.7 F 105 H 16 133/86 H 98 04/27/18 19:42 04/27/18 19:42 04/27/18 19:42 04/27/18 19:42 04/27/18 19:42 - Laboratory Laboratory results interpreted by me: 04/27/18 20:02 Urine Urobilinogen 4.0 H Urine Ascorbic Acid 40 H Discharge - Discharge Clinical Impression: Skin wound from surgical incision Condition: Stable Disposition: HOME, SELF-CARE Instructions: Dressing Instructions for Open Wounds ([facility]) Additional Instructions: Follow up with your primary care provider in one to 2 days. Return to the emergency room immediately if symptoms worsen or any additional concerns. Prescriptions: Hydrocodone/Acetaminophen [Hydrocodon-Acetaminophen 5-325] 1 each PO Q6 #10 tablet
[2018-04-27 20:46] LABS: APPEARANCE,URINE SLIGHTLY-CLOUDY; BILIRUBIN,URINE NEGATIVE (NEGATIVE); COLOR,URINE YELLOW; GLUCOSE, URINE NEGATIVE (NEGATIVE); KETONES,URINE NEGATIVE (NEGATIVE); LEUKOCYTE ESTERASE,URINE NEGATIVE (NEGATIVE); NITRITE,URINE NEGATIVE (NEGATIVE); PROTEIN,URINE NEGATIVE (NEGATIVE); URINE SPECIFIC GRAVITY 1.027
== END 2018-04-27 22:00 | disposition home or self-care (01) ==
LOC: ER 19:32
DX: Z48.816 Encounter for surgical aftercare following surgery on the genitourinary system (principal); O90.89 Other complications of the puerperium, not elsewhere classified; R10.2 Pelvic and perineal pain; O99.53 Diseases of the respiratory system complicating the puerperium; J45.909 Unspecified asthma, uncomplicated
CPT/HCPCS: 81001; 99283

== ENCOUNTER 2018-09-27 09:05 | Emergency (ER) | payer MEDICAID ==
[2018-09-27 09:12] VITALS: BP 125/79
[2018-09-27] MEDS ORDERED: KETOROLAC TROMETHAMINE INJ/PF 30 MG/1 ML SDV IV ONE (09:25)
[2018-09-27] MEDS ORDERED: DEXAMETHASONE SOD PHOS INJ 10 MG/1 ML VIAL IV ONE (09:25)
--- NOTE | 2018-09-27 09:30 | ER Document Report ---
ED ENT - General Chief Complaint: Sore Throat Stated Complaint: SORE THROAT Time Seen by Provider: 09/27/18 09:16 Mode of Arrival: Ambulatory Information source: Patient Notes: 23-year-old female presents to ED for complaint of sore throat swollen tonsils body aches cough and headache. She states the symptoms started last night. She has a temp of 99.3. Patient is able to speak in full sentences. She states she does not drink smoke or doing drugs. She only medical history is asthma. She is alert oriented respirations regular and unlabored and walking with a even steady gait. TRAVEL OUTSIDE OF THE [place] IN LAST 30 DAYS: No - HPI Patient complains to provider of: Throat problem Onset: Yesterday Onset/Duration: Gradual Quality of pain: Sharp Severity: Severe Pain Level: 5 Context: Recent Illness Location of pain: Nose, Throat Associated symptoms: Fever, Runny nose, Sinus pain, Sore throat Similar symptoms previously: No Recently seen / treated by doctor: No - Related Data Allergies/Adverse Reactions: No Known Allergies Allergy (Verified 09/27/18 09:08) Past Medical History - General Information source: Patient - Social History Smoking Status: Never Smoker Frequency of alcohol use: None Drug Abuse: None Lives with: Family Family History: Reviewed & Not Pertinent Patient has suicidal ideation: No Patient has homicidal ideation: No - Past Medical History Cardiac Medical History: Reports: None Pulmonary Medical History: Reports: Hx Asthma EENT Medical History: Reports: None Neurological Medical History: Reports: None Endocrine Medical History: Reports: None Renal/ Medical History: Reports: None Malignancy Medical History: Reports: None GI Medical History: Reports: None Musculoskeletal Medical History: Reports None Skin Medical History: Reports None Psychiatric Medical History: Reports: Hx Anxiety, Hx Attention Deficit Hyperactivity Disorder Comment Only: Hx Depression - Patient denies a history of depression Traumatic Medical History: Reports: None Infectious Medical History: Reports: None Surgical Hx: Negative Past Surgical History: Reports: None - Immunizations Immunizations up to date: Yes Hx Diphtheria, Pertussis, Tetanus Vaccination: Yes Review of Systems - Review of Systems Constitutional: Fever EENT: Nose discharge, Throat pain Cardiovascular: No symptoms reported Respiratory: Cough Gastrointestinal: No symptoms reported Genitourinary: No symptoms reported Female Genitourinary: No symptoms reported Musculoskeletal: No symptoms reported Skin: No symptoms reported Hematologic/Lymphatic: No symptoms reported Neurological/Psychological: No symptoms reported -: Yes All other systems reviewed and negative Physical Exam - Vital signs Vitals: Temp Pulse Resp BP Pulse Ox 99.3 F 100 16 125/79 98 09/27/18 09:09 09/27/18 09:09 09/27/18 09:09 09/27/18 09:09 09/27/18 09:09 Interpretation: Normal - General General appearance: Appears well, Alert - HEENT Head: Normocephalic, Atraumatic Eyes: Normal Pupils: PERRL Sinus: Normal Nasal: Swelling, Clear rhinorrhea Mouth/Lips: Normal Mucous membranes: Normal Pharynx: Erythema, Exudate, Tonsillar hypertrophy Neck: Anterior cervical chain - Respiratory Respiratory status: No respiratory distress Chest status: Nontender Breath sounds: Nonproductive cough Chest palpation: Normal - Cardiovascular Rhythm: Regular Heart sounds: Normal auscultation Murmur: No - Abdominal Inspection: Normal Distension: No distension Bowel sounds: Normal Tenderness: Nontender Organomegaly: No organomegaly - Back Back: Normal, Nontender - Extremities General upper extremity: Normal inspection, Nontender, Normal color, Normal ROM, Normal temperature General lower extremity: Normal inspection, Nontender, Normal color, Normal ROM, Normal temperature, Normal weight bearing. No: Gennaro's sign - Neurological Neuro grossly intact: Yes Cognition: Normal Orientation: AAOx4 [place] Coma Scale Eye Opening: Spontaneous [place] Coma Scale Verbal: Oriented [place] Coma Scale Motor: Obeys Commands [place] Coma Scale Total: 15 Speech: Normal Motor strength normal: LUE, RUE, LLE, RLE Sensory: Normal - Psychological Associated symptoms: Normal affect, Normal mood - Skin Skin Temperature: Warm Skin Moisture: Dry Skin Color: Normal Course - Re-evaluation Re-evalutation: 09/27/18 10:56 She tested positive for strep she was treated with penicillin G IM 1,200,000 units. She was given Decadron and Toradol IV. Her Monospot was negative. Patient was discharged home with instructions for change in toothbrush and Ty lenol and Motrin. Patient has 5-month-old daughter she was told to not to kiss agrees on the child and not to put the babies pacifier in her mouth for at least the next week. Patient verbalized understanding and agreement with treatment plan. - Vital Signs Vital signs: Temp Pulse Resp BP Pulse Ox 99.3 F 100 16 125/79 98 09/27/18 09:09 09/27/18 09:09 09/27/18 09:09 09/27/18 09:09 09/27/18 09:09 Discharge - Discharge Clinical Impression: Strep pharyngitis Condition: Stable Disposition: HOME, SELF-CARE Instructions: Family Physicians / Practices Additional Instructions: STREP THROAT: Your sore throat is due to the streptococcus germ (strep throat). Strep throat usually makes you feel quite ill with fever and aches, headache, swollen sore throat, and tender bumps under the angles of the jaw. Strep throat requires antibiotic treatment. Although the sore throat may go away by itself, complications such as rheumatic fever, kidney disease, or throat abscess can occur. We usually prescribe antibiotics by mouth. Be sure to take the medicine until it's gone. If you stop early, the strep may come back. If you are vomiting, are severely ill, or can't remember to take pills, we can give you an antibiotic shot. Take acetaminophen or ibuprofen for pain and fever. Sip frequent clear liquids, or use popsicles or ice chips. Anesthetic sprays or lozenges may help. Make sure the air in the room is not too dry. Avoid using decongestants or antihistamines. Call the doctor if there is no improvement in three days, or if you have difficulty breathing, increasing throat pain, high fever, rash, or frequent vomiting. Penicillins The antibiotic you have received is a member of the penicillin family. This is a very useful class of antibiotics. The particular type of antibiotic chosen for you was determined by the nature of your problem. Penicillins are absorbed best when taken on an empty stomach, and should be taken either a half hour before or two hours after a meal. Some newer medicines of the penicillin class are better taken with food -- if this is the case, the pharmacist will label the medicine to alert you. Penicillins usually have no side effects. However, allergy to penicillins is common. If you have had an allergic reaction to any drug of the penicillin family, you should never take any other penicillin. Notify your doctor at once if you develop hives, itching, swelling, faintness, or shortness of breath. Less serious side effects can include nausea or diarrhea. STEROID MEDICATION: You have been given a medicine of the cortisone/steroid class. This medication is used to control inflammation or allergy. It is usually only given for a short period of time, until the acute process subsides. There are usually no side effects from short-term use of cortisone-like medications. Some persons feel an increased sense of well-being and are not sleepy at bedtime. Long-term use of cortisone medications is best avoided, unless required for a severe condition. If your condition does not remit, or relapses after the course of corticosteroid medication, you should consult your physician. Toradol Injection You have been given an injection of ketorolac tromethamine (Toradol). This is an excellent, safe drug for pain control. It also has potent antiinflammatory action. You should have significant pain relief within about one hour. Toradol is not addicting and is non-sedating. It does not interfere with driving or work. Call or return if you develop itching, hives, shortness of breath, or rash. Please change her toothbrush tonight tomorrow night and the next night FOLLOW-UP CARE: If you have been referred to a physician for follow-up care, call the physicians office for an appointment as you were instructed or within the next two days. If you experience worsening or a significant change in your symptoms, notify the physician immediately or return to the Emergency Department at any time for re-evaluation. Referrals: ANGLE,NO [Primary Care Provider] - Follow up as needed
[2018-09-27] MEDS ORDERED: PENICILLIN G BENZATHINE 1.2 MILLION UNIT/2 ML DISP.SYRIN IM ONE (10:12)
== END 2018-09-27 10:30 | disposition home or self-care (01) ==
LOC: ER 09:05
DX: J02.0 Streptococcal pharyngitis (principal); M79.10 Myalgia, unspecified site; R05 Cough; R51 Headache; R50.9 Fever, unspecified; R09.89 Other specified symptoms and signs involving the circulatory and respiratory systems; J45.909 Unspecified asthma, uncomplicated
CPT/HCPCS: 99283; 96372; 96374; 96375; 36415; 87880; 86308; J1885; J0561; J1100

== ENCOUNTER 2018-10-02 20:49 | Emergency (ER) | payer MEDICAID ==
[2018-10-02] MEDS ORDERED: HYDROCODONE/ACETAMINOPHEN 5-325 MG (6 TAB/ER DISP) PO PRN (21:05)
--- NOTE | 2018-10-02 21:09 | ER Document Report ---
HPI - HPI Patient complains to provider of: Left ear pain Time Seen by Provider: 10/02/18 20:58 Onset: This morning Onset/Duration: Gradual Quality of pain: Achy Pain Level: 4 Context: Patient presents complaining of left ear pain with swelling to the left ear canal. Patient denies any fever. Associated Symptoms: Earache. denies: Fever Exacerbated by: Denies Relieved by: Denies Similar symptoms previously: No Recently seen / treated by doctor: No - ROS ROS below otherwise negative: Yes Systems Reviewed and Negative: Yes All other systems reviewed and negative - CONSTITUTIONAL Constitutional: DENIES: Fever, Chills - EENT EENT: REPORTS: Ear Pain. DENIES: Sore Throat - NEURO Neurology: DENIES: Headache - RESPIRATORY Respiratory: DENIES: Coughing - GASTROINTESTINAL Gastrointestinal: DENIES: Patient vomiting - REPRODUCTIVE Reproductive: DENIES: : - MUSCULOSKELETAL Musculoskeletal: DENIES: Neck Pain - DERM Skin Color: Normal Skin Problems: None Past Medical History - General Information source: Patient - Social History Smoking Status: Never Smoker Frequency of alcohol use: None Drug Abuse: None Occupation: None Family History: Reviewed & Not Pertinent Pulmonary Medical History: Reports: Hx Asthma Renal/ Medical History: Denies: Hx Peritoneal Dialysis Psychiatric Medical History: Reports: Hx Anxiety, Hx Attention Deficit Hyperactivity Disorder Past Surgical History: Reports: Hx Section - Immunizations Immunizations up to date: Yes Hx Diphtheria, Pertussis, Tetanus Vaccination: Yes Vertical Provider Document - CONSTITUTIONAL Agree With Documented VS: Yes Exam Limitations: No Limitations General Appearance: WD/WN, No Apparent Distress - INFECTION CONTROL TRAVEL OUTSIDE OF THE [place] IN LAST 30 DAYS: No - HEENT HEENT: Atraumatic, Normocephalic. negative: Pharyngeal Exudate, Pharyngeal Tenderness, Pharyngeal Erythema, Tympanic Membrane Red, Tympanic Membrane Bulging Notes: Swelling to the left external ear canal, normal left TM. Patient with left ear preauricular lymphadenopathy and tenderness., No mastoid tenderness or swelling - NECK Neck: Supple, Lymphadenopathy-Left - Left preauricular area - RESPIRATORY Respiratory: Breath Sounds Normal, No Respiratory Distress - CARDIOVASCULAR Cardiovascular: Regular Rate, Regular Rhythm - MUSCULOSKELETAL/EXTREMETIES Musculoskeletal/Extremeties: MAEW - NEURO Level of Consciousness: Awake, Alert, Appropriate Motor/Sensory: No Motor Deficit - DERM Integumentary: Warm, Dry Course - Vital Signs Vital signs: Temp Pulse Resp BP Pulse Ox 99.0 F 95 16 129/79 H 97 10/02/18 20:52 10/02/18 20:52 10/02/18 20:52 10/02/18 20:52 10/02/18 20:52 Discharge - Discharge Clinical Impression: Otitis externa Qualifiers: Otitis externa type: unspecified type Chronicity: acute Laterality: left Qualified Code(s): H60.502 - Unspecified acute noninfective otitis externa, left ear Condition: Stable Disposition: HOME, SELF-CARE Instructions: Use of Ear Drops ([facility]), Oral Narcotic Medication ([facility]), Otitis Externa ([facility]) Additional Instructions: Return immediately for any new or worsening symptoms Followup with your primary care provider, call tomorrow to make a followup appointment Instill Cortisporin otic solution, 4 drops to left ear 4 times a day for the next week. Follow-up ENT doctor for any persistent problems Prescriptions: Naproxen [Naprosyn 250 Nmg Tablet] 1 tab PO BID #14 tablet [facility] - [facility] - Follow up as needed
[2018-10-02] MEDS ORDERED: NEOMY SULF/POLYMYX B SULF/HC OTIC SUSP 10 ML AS SCH (21:15)
[2018-10-02 21:22] VITALS: BP 120/73
== END 2018-10-02 21:23 | disposition home or self-care (01) ==
LOC: ER 20:49
DX: H60.502 Unspecified acute noninfective otitis externa, left ear (principal)
CPT/HCPCS: 99283; J3490

== ENCOUNTER 2019-10-02 18:15 | Emergency (ER) | payer MEDICAID ==
[2019-10-02] MEDS ORDERED: IBUPROFEN 800 MG TABLET PO ONE (20:32)
--- NOTE | 2019-10-02 20:36 | ER Document Report ---
HPI - HPI Time Seen by Provider: 10/02/19 20:27 Pain Level: 5 Context: Patient is a 24-year-old female who presents to the emergency department with a chief complaint of fever. Patient reports on Wednesday which was 2 days ago she developed cough with a productive sputum that is green. Patient reports she has had a runny nose and congestion as well as body aches. Patient reports she developed a fever yesterday. Patient reports nausea without vomiting or diarrhea. Patient denies sick contacts. Patient did not receive the influenza vaccine. Patient does report a history of asthma but denies current wheezing. Patient reports she did take Tylenol and TheraFlu prior to arrival. Patient states she does not have a rash and has been tolerating liquids. - REPRODUCTIVE LMP: sep 09 Reproductive: DENIES: : Past Medical History - General Information source: Patient - Social History Smoking Status: Never Smoker Chew tobacco use (# tins/day): No Frequency of alcohol use: None Drug Abuse: None Lives with: Spouse/Significant other Family History: Reviewed & Not Pertinent Patient has suicidal ideation: No Patient has homicidal ideation: No - Past Medical History Cardiac Medical History: Reports: None Pulmonary Medical History: Reports: Hx Asthma EENT Medical History: Reports: None Neurological Medical History: Reports: None Endocrine Medical History: Reports: None Renal/ Medical History: Reports: None. Denies: Hx Peritoneal Dialysis Malignancy Medical History: Reports: None GI Medical History: Reports: None Musculoskeletal Medical History: Reports None Skin Medical History: Reports None Psychiatric Medical History: Reports: Hx Anxiety, Hx Attention Deficit Hyperactivity Disorder Comment Only: Hx Depression - Patient denies a history of depression Traumatic Medical History: Reports: None Infectious Medical History: Reports: None Past Surgical History: Reports: Hx Section - Immunizations Immunizations up to date: Yes Hx Diphtheria, Pertussis, Tetanus Vaccination: Yes Vertical Provider Document - CONSTITUTIONAL Agree With Documented VS: Yes Exam Limitations: No Limitations General Appearance: No Apparent Distress - INFECTION CONTROL TRAVEL OUTSIDE OF THE [place] IN LAST 30 DAYS: No - HEENT Notes: GENERAL: Well-appearing, well-nourished and in no acute distress. HEAD: Atraumatic, normocephalic. EYES: Pupils equal round and reactive to light, extraocular movements intact, sclera anicteric, conjunctiva are normal. ENT: TMs normal, nares patent, oropharynx clear without exudates. Moist mucous membranes. Sinus congestion, + rhinorrhea with erythematous bilateral turbinates. NECK: Normal range of motion, supple without lymphadenopathy or JVD. LUNGS: Breath sounds clear to auscultation bilaterally and equal. No wheezes rales or rhonchi. HEART: Regular rate and rhythm without murmurs, rubs or gallops. ABDOMEN: Soft, nontender, normoactive bowel sounds. No guarding, no rebound. No masses appreciated. BACK: No cervical, thoracic, lumbar midline tenderness. No saddle anesthesia, normal distal neurovascular exam. GENITOURINARY: Deferred. EXTREMITIES: Normal range of motion, no pitting or edema. No clubbing or cyanosis. NEUROLOGICAL: Cranial nerves II through XII grossly intact. Normal speech, normal gait. PSYCH: Normal mood, normal affect. SKIN: Warm, Dry, normal turgor, no rashes or lesions noted. Triple mass Course - Re-evaluation Re-evalutation: 10/02/19 20:34 Patient slightly tachycardic in triage and febrile. Will give a dose of ibuprofen and encourage fluid intake. Will obtain a chest x-ray to rule out pneumonia, influenza testing. Patient nontoxic-appearing. 10/02/19 21:53 Chest x-ray and influenza test are negative. Patient has not received her antipyretic at this time. Will repeat vital signs. If patient continues to be tachycardic and febrile will give a dose and reevaluate prior to discharge. Patient drinking fluids without nausea, vomiting or diarrhea. Patient nontoxic- appearing. - Vital Signs Vital signs: Temp Pulse Resp BP Pulse Ox 102.3 F H 112 H 126/86 H 98 10/02/19 19:23 10/02/19 19:23 10/02/19 19:23 10/02/19 19:23 Discharge - Discharge Clinical Impression: Cough, Congestion of respiratory tract Fever Qualifiers: Fever type: unspecified Qualified Code(s): R50.9 - Fever, unspecified Condition: Stable Disposition: HOME, SELF-CARE Additional Instructions: *Today was seen in the emergency department for cough, fever and congestion. Your influenza test and chest x-ray were negative. You do not have signs of pneumonia. Please continue take ibuprofen and Tylenol as needed for pain or fever. Your symptoms could be due to a viral illness as you have only had symptoms for 2 days. This can last 10 to 14 days. There is no antibiotic n eeded for a virus. Please return to the emergency department or see your doctor for fever persist over 2 days or if there is any significant worsening of symptoms. *You can use [id number] saline nasal sprays as well as a Soni pot to help flush her sinuses. You can buy this at any local pharmacy. UPPER RESPIRATORY ILLNESS: You have a viral infection of the respiratory passages -- a "cold." This common infection causes nasal congestion, drainage, and often sore throat and cough. It is highly contagious. The disease usually lasts about 10 to 14 days. There is no "cure" for the viral infection -- it must run its course. If there is a complication, such as bacterial infection in the nose, sinuses, middle ear, or bronchial tubes, antibiotics may be required. The antibiotics won't affect the virus. Drink plenty of fluids. A humidifier may help. An expectorant medication or decongestant may make you more comfortable. Use acetaminophen or ibuprofen for fever or aches. See the doctor if fever persists over two days, if there is any significant worsening of your symptoms, or if you simply fail to improve as expected. USE OF ACETAMINOPHEN (Tylenol): Acetaminophen may be taken for pain relief or fever control. It's much safer than aspirin, offering a wider range of "safe" dosages. It is safe during . Some brand names are Tylenol, Panadol, Datril, Anacin 3, Tempra, and Liquiprin. Acetaminophen can be repeated every four hours. The following are maximum recommended dosages: >89 pounds or adults 650 mg to 900 mg Acetaminophen can be repeated every four hours. Maximum dose not to exceed 4000 mg a day. SMOKING: If you smoke, you should stop smoking. The tar and chemicals in cigarette smoke are harmful. Smoking has been shown to cause: emphysema chronic bronchitis lung cancer mouth and throat cancer stomach and pancreas cancer premature aging defects In addition, smoking increases ear and lung infections in children of smokers. FOLLOW-UP CARE: If you have been referred to a physician for follow-up care, call the [facility] office for an appointment as you were instructed or within the next two days. If you experience worsening or a significant change in your symptoms, notify the physician immediately or return to the Emergency Department at any time for re-evaluation. Forms: Return to Work Referrals: ROBERT ARREAGA MD [Primary Care Provider] - Follow up as needed
--- NOTE | 2019-10-02 21:16 | RADIOLOGY REPORT (SQ) ---
EXAM DESCRIPTION: XR CHEST 2 VIEWS COMPLETED DATE/TME: 10/02/2019 20:32 CLINICAL HISTORY: 24 years, Female, productive cough, fever COMPARISON: X-ray chest 06/10/2015 NUMBER OF VIEWS: TECHNIQUE: LIMITATIONS: None. FINDINGS: No evidence of pulmonary infiltrate or pleural effusion. The heart and mediastinum are unremarkable. Pulmonary vascularity appears normal. There is no significant change, as compared with the prior x-ray(s). IMPRESSION: No acute finding. copyright 2010 [employer]- All Rights Reserved
[2019-10-02 21:36] LABS: A TYPE INFLUENZA AG NEGATIVE (NEGATIVE); B INFLUENZA AG NEGATIVE (NEGATIVE)
[2019-10-02 22:51] VITALS: BP 120/71
== END 2019-10-02 23:39 | disposition home or self-care (01) ==
LOC: ER 18:15
DX: R50.9 Fever, unspecified (principal); R05 Cough; R09.89 Other specified symptoms and signs involving the circulatory and respiratory systems; R52 Pain, unspecified; R11.0 Nausea; R00.0 Tachycardia, unspecified; J45.909 Unspecified asthma, uncomplicated
CPT/HCPCS: 99283; 87804; 71046; J3490

== ENCOUNTER 2019-12-07 12:15 | Emergency (ER) | payer MEDICAID ==
--- NOTE | 2019-12-07 12:37 | ER Document Report ---
ED Medical Screen (RME) - General Chief Complaint: Vaginal Bleeding Stated Complaint: VAGINAL BLEEDING,ABDOMINAL PAIN Time Seen by Provider: 12/07/19 12:32 Primary Care Provider: ROBERT ARREAGA MD [Primary Care Provider] - Follow up as needed Notes: HPI: 24-year-old female presenting to the emergency department complaining of heavy vaginal bleeding with clots that began yesterday. Last menstrual cycle was November 12 and was a regular cycle she did not take a test to see if she was . Reports still having pelvic cramping today, but vaginal bleeding has tapered off significantly today. Reports slight lightheadedness with standing I have greeted and performed a rapid initial assessment of this patient. A comprehensive ED assessment and evaluation of the patient, analysis of test results and completion of the medical decision making process will be conducted by additional ED providers PHYSICAL EXAMINATION: GENERAL: Well-appearing, well-nourished and in no acute distress. HEAD: Atraumatic, normocephalic. EYES: sclera anicteric, conjunctiva are normal. ENT: Moist mucous membranes. NECK: Normal range of motion LUNGS: Normal work of breathing, clear to auscultation HEART: 2+ radial pulses bilaterally, regular rate and rhythm ABD: limited by positioning for exam in triage. : Deferred in triage EXTREMITIES: no pitting or edema. No cyanosis. NEUROLOGICAL: No focal neurological deficits. Moves all extremities spontaneously and on command. PSYCH: Normal mood, normal affect. SKIN: Warm, Dry, normal turgor, no rashes or lesions noted. TRAVEL OUTSIDE OF THE [place] IN LAST 30 DAYS: No - Related Data Allergies/Adverse Reactions: No Known Allergies Allergy (Verified 12/07/19 12:19) Past Medical History Pulmonary Medical History: Reports: Hx Asthma Renal/ Medical History: Denies: Hx Peritoneal Dialysis Psychiatric Medical History: Reports: Hx Anxiety, Hx Attention Deficit Hyperactivity Disorder Comment Only: Hx Depression - Patient denies a history of depression Past Surgical History: Reports: Hx Section - Immunizations Immunizations up to date: Yes Hx Diphtheria, Pertussis, Tetanus Vaccination: Yes Physical Exam - Vital signs Vitals: Temp Pulse Resp BP Pulse Ox 98.2 F 90 18 125/77 100 12/07/19 12:27 12/07/19 12:27 12/07/19 12:27 12/07/19 12:27 12/07/19 12:27 Course - Vital Signs Vital signs: Temp Pulse Resp BP Pulse Ox 98.2 F 90 18 125/77 100 12/07/19 12:27 12/07/19 12:27 12/07/19 12:27 12/07/19 12:12/07/19 12:27 Doctor's Discharge - Discharge Referrals: ROBERT ARREAGA MD [Primary Care Provider] - Follow up as needed
[2019-12-07 13:08] LABS: APPEARANCE,URINE SLIGHTLY-CLOUDY; BILIRUBIN,URINE NEGATIVE (NEGATIVE); COLOR,URINE YELLOW; GLUCOSE, URINE NEGATIVE (NEGATIVE); KETONES,URINE NEGATIVE (NEGATIVE); LEUKOCYTE ESTERASE,URINE NEGATIVE (NEGATIVE); NITRITE,URINE NEGATIVE (NEGATIVE); PROTEIN,URINE NEGATIVE (NEGATIVE); URINE SPECIFIC GRAVITY 1.021; UROBILINOGEN,URINE NEGATIVE mg/dL (<2.0)
[2019-12-07 13:11] LABS: HEMATOCRIT 27.9 % (36.0-47.0); HEMOGLOBIN 8.5 g/dL (12.0-15.5); MEAN CORPUSCULAR HEMOGLOBIN 19.5 pg (27.0-33.4); MEAN CORPUSCULAR HGB CONC 30.6 g/dL (32.0-36.0); PLATELET COUNT 290 10^3/uL (150-450); RED BLOOD COUNT 4.37 10^6/uL (3.72-5.28); RED CELL DISTRIBUTION WIDTH 21.1 % (11.5-14.0); WHITE BLOOD COUNT 5.5 10^3/uL (4.0-10.5)
--- NOTE | 2019-12-07 13:16 | ER Document Report ---
ED General - General Chief Complaint: Abdominal Cramping Stated Complaint: VAGINAL BLEEDING,ABDOMINAL PAIN Time Seen by Provider: 12/07/19 12:32 Primary Care Provider: ROBERT ARREAGA MD [Primary Care Provider] - Follow up as needed ARIE REDMOND MD [ACTIVE STAFF] - Follow up as needed TRAVEL OUTSIDE OF THE [place] IN LAST 30 DAYS: No - HPI Notes: 24-year-old female 1 para 1 presents to the emergency room for complaints of heavy vaginal bleeding with clots that has been going on for the last 3 days. Patient states her last menstrual cycle was November 12, 2019, states she is not on any form of control, states she has irregular periods, she is trying to conceive. Patient was concerned because she has had so many blood clots. Denies any bleeding disorders. Patient did not take a test issue she was however in triage this was performed which was negative. Patient states she has some pelvic cramping today. States her bleeding has diminished greatly in the last day. States when she stands up a little quickly she does get a little lightheaded. Patient states she is only with her fianc for a partner and does not use protection with sexual intercourse. Denies fevers, chills, chest pain,palpitations, shortness of breath, dyspnea, nausea, vomiting, diarrhea, abdominal pain, hematuria,blurred vision, double vision, loss of vision, speech changes, dizziness, syncope, headaches, wheezing, ST, URI, neck pain, weakness, bowel or bladder dysfunction, saddle anesthesia, numbness or tingling in bilateral upper or lower extremities equally, muscle paralysis, weakness in bilateral upper or lower extremities equally or rash. - Related Data Allergies/Adverse Reactions: No Known Allergies Allergy (Verified 12/07/19 12:19) Past Medical History - General Information source: Patient - Social History Smoking Status: Never Smoker Chew tobacco use (# tins/day): No Frequency of alcohol use: None Drug Abuse: Marijuana Family History: Reviewed & Not Pertinent Patient has suicidal ideation: No Patient has homicidal ideation: No Pulmonary Medical History: Reports: Hx Asthma Renal/ Medical History: Denies: Hx Peritoneal Dialysis Psychiatric Medical History: Reports: Hx Anxiety, Hx Attention Deficit Hyperactivity Disorder Comment Only: Hx Depression - Patient denies a history of depression Past Surgical History: Reports: Hx Section - Immunizations Immunizations up to date: Yes Hx Diphtheria, Pertussis, Tetanus Vaccination: Yes Review of Systems - Review of Systems Constitutional: No symptoms reported EENT: No symptoms reported Cardiovascular: No symptoms reported Respiratory: No symptoms reported Gastrointestinal: No symptoms reported Genitourinary: No symptoms reported Female Genitourinary: See HPI Musculoskeletal: No symptoms reported Skin: No symptoms reported Hematologic/Lymphatic: No symptoms reported Neurological/Psychological: No symptoms reported Physical Exam - Vital signs Vitals: Temp Pulse Resp BP Pulse Ox 98.2 F 90 18 125/77 100 12/07/19 12:27 12/07/19 12:27 12/07/19 12:27 12/07/19 12:27 12/07/19 12:27 - Notes Notes: PHYSICAL EXAMINATION: reviewed vital signs by RN GENERAL: Well-appearing, well-nourished and in no acute distress. HEAD: Atraumatic, normocephalic. EYES: Pupils equal round and reactive to light, extraocular movements intact, conjunctiva are normal. ENT: Nares patent, oropharynx clear without exudates. Moist mucous membranes. NECK: Normal range of motion, supple without lymphadenopathy LUNGS: Breath sounds clear to auscultation bilaterally and equal. No wheezes rales or rhonchi. HEART: Regular rate and rhythm without murmurs ABDOMEN: Soft, nontender, nondistended abdomen. No guarding, no rebound. No masses appreciated. Female : External genitalia without erythema, exudate or discharge. Vaginal vault is without discharge. Cervix is of normal color without lesion. Uterus is noted to be of normal size and nontender. No cervical motion tenderness is seen. No masses are palpated. No blood in the vaginal vault without clots, os closed, no adnexal tenderness or mass Musculoskeletal: Normal range of motion, no pitting or edema. No cyanosis. NEUROLOGICAL: Cranial nerves grossly intact. Normal speech, normal gait. Normal sensory, motor exams PSYCH: Normal mood, normal affect. SKIN: Warm, Dry, normal turgor, no rashes or lesions noted. Course - Re-evaluation Re-evalutation: 12/07/19 14:18 Afebrile vital stable no distress. Nurse's notes reviewed. Clinical e xamination negative for any acute findings on pelvic exam. Noted anemia on CBC, no leukocytosis. CMP negative for hepatic or renal dysfunction, no electrolyte disturbances. Wet mount did show to have bacterial vaginosis, negative for yeast or trichomonas, GC pending.will start her on Flagyl as recommended. Pelvic examination was unremarkable for any acute findings. Transvaginal ultrasound this shows some fluid in the uterus but essentially unremarkable. hCG negative. Urinalysis unremarkable. Discussed with patient that she needs to take Flagyl with food and to not drink alcohol as an cause nausea or vomiting. To follow-up with DIRECTOR OF SAFETY AND SECURITY and primary care provider. Likely this was a normal menstrual cycle which has been affected by other hormone stressor changes in her lifestyle. Patient is trying to conceive, discussed precautions to prevent STDs. After performing a Medical Screening Examination, I estimate there is LOW risk for ACUTE APPENDICITIS, BOWEL OBSTRUCTION, ACUTE CHOLECY STITIS, PERFORATED DIVERTICULITIS, INCARCERATED HERNIA, PANCREATITIS, PELVIC INFLAMMATORY DISEASE, PERFORATED ULCER, ECTOPIC , or TUBO-OVARIAN ABSCESS, thus I consider the discharge disposition reasonable. Also, there is no evidence or peritonitis, sepsis, or toxicity. I have reevaluated this patient multiple times and no significant life threatening changes are noted. The patient and I have discussed the diagnosis and risks, and we agree with discharging home with close follow-up with the understanding that symptoms and presentations can change. We also discussed returning to the Emergency Department immediately if new or worsening symptoms occur. We have discussed the symptoms which are most concerning (e.g., bloody stool, fever, changing or worsening pain, vomiting) that necessitate immediate return. - Vital Signs Vital signs: Temp Pulse Resp BP Pulse Ox 98.2 F 75 18 110/70 100 12/07/19 12:27 12/07/19 14:23 12/07/19 12:27 12/07/19 14:23 12/07/19 12:27 - Laboratory Result Diagrams: 12/07/19 12:40 12/07/19 12:40 Laboratory results interpreted by me: 12/07/19 12:40 Hgb 8.5 L Hct 27.9 L MCV 64 L MCH 19.5 L MCHC 30.6 L RDW 21.1 H Discharge - Discharge Clinical Impression: Anemia, Bacterial vaginosis, Vaginal bleeding Condition: Stable Disposition: HOME, SELF-CARE Instructions: Anemia ([facility]), Vaginal Bleeding ([facility]), Vaginosis, Bacterial ([facility]) Additional Instructions: Your blood work showed that you have anemia, your ultrasound was normal. Your urine was normal. It shows that you also have bacterial vaginosis which is not an STD. Take Flagyl twice a day for 7 days, do not drink alcohol while taking this medication cause nausea or vomiting. Please follow-up with DIRECTOR OF SAFETY AND SECURITY and your primary care provider in the next 24 to 48 hours. Increase oral hydration. Return immediately for any new or worsening symptoms. Follow up with primary care provider, call tomorrow to make followup appointment. Prescriptions: Metronidazole [Flagyl] 500 mg PO BID #14 tablet Forms: Return to Work Referrals: ROBERT ARREAGA MD [Primary Care Provider] - Follow up as needed ARIE REDMOND MD [ACTIVE STAFF] - Follow up as needed
[2019-12-07 13:26] LABS: ALBUMIN 4.7 g/dL (3.5-5.0); ALKALINE PHOSPHATASE 66 U/L (38-126); ANION GAP 10 (5-19); ASPARTATE AMINO TRANSFERASE 20 U/L (14-36); BILIRUBIN,TOTAL 0.2 mg/dL (0.2-1.3); BLOOD UREA NITROGEN 14 mg/dL (7-20); CALCIUM 9.3 mg/dL (8.4-10.2); CARBON DIOXIDE 24 mmol/L (22-30); CHLORIDE 104 mmol/L (98-107); GLUCOSE 82 mg/dL (75-110); MEAN CORPUSCULAR VOLUME 64 fl (80-97); POTASSIUM 4.1 mmol/L (3.6-5.0)
[2019-12-07 13:34] LABS: ABSOLUTE LYMPHOCYTES# (MANUAL) 2.2 10^3/uL (0.5-4.7); ABSOLUTE MONOCYTES # (MANUAL) 0.2 10^3/uL (0.1-1.4); BASOPHILS % (MANUAL) 1 % (0-2); EOSINOPHILS % (MANUAL) 3 % (0-6); LYMPHOCYTES % (MANUAL) 38 % (13-45); MONOCYTES % (MANUAL) 4 % (3-13); SEGMENTED NEUTROPHILS % (MAN) 52 % (42-78); TOTAL CELLS COUNTED 100
[2019-12-07 13:39] LABS: ANISOCYTOSIS 3+; HYPOCHROMASIA 2+; POLYCHROMASIA 1+
[2019-12-07 13:40] LABS: OVALOCYTES 1+; PLATELET COMMENT ADEQUATE; POIKILOCYTOSIS 2+; SCHISTOCYTES SLIGHT; TEAR DROP CELLS 1+
[2019-12-07 14:23] LABS: BACTERIA (WET MOUNT) 4+ BACTERIA SEEN; EPITHELIALS (WET MOUNT) 4+ EPITHELIALS SEEN; T.VAGINALIS (WET MOUNT) NO TRICHOMONAS SEEN; WBCS (WET MOUNT) RARE WBCS SEEN; YEAST (WET MOUNT) NO YEAST SEEN
--- NOTE | 2019-12-07 14:25 | RADIOLOGY REPORT (SQ) ---
EXAM DESCRIPTION: U/S NON OB PEL TV W/DOPPLER COMPLETED DATE/TIME: 12/07/2019 2:03 pm REASON FOR STUDY: vaginal bleeding COMPARISON: None. TECHNIQUE: Dynamic and static grayscale images acquired of the pelvis via transvaginal approach and recorded on PACS. Additional selected color Doppler and spectral images recorded. LIMITATIONS: None. FINDINGS: UTERUS: Contour normal. No mass. ENDOMETRIAL STRIPE: Mild endometrial fluid. Endometrium otherwise measures up to 1.6 cm. CERVIX: No nabothian cysts. RIGHT OVARY AND DOPPLER: Normal size. No worrisome masses. Normal arterial vascular flow without evid ence for torsion. LEFT OVARY AND DOPPLER: Normal size. No worrisome masses. Normal arterial vascular flow without evide nce for torsion. FREE FLUID: Trace cul-de-sac fluid. OTHER: No other significant finding. MEASUREMENTS: UTERUS: 10.4 x 4.5 x 5.6 cm ENDOMETRIAL STRIPE: As above. RIGHT OVARY: 4.8 x 2.6 x 2.6 cm LEFT OVARY: 2.0 x 2.9 x 2.7 cm IMPRESSION: Fairly unremarkable study. Minimal endometrial fluid noted but the uterus is otherwise normal as are the ovaries. TECHNICAL DOCUMENTATION: JOB ID: [id number] 2010 [employer]- All Rights Reserved Rev-02/18 Reading location - IP/workstation name: [email or web address]
[2019-12-07 14:33] VITALS: BP 110/70
[2019-12-07 16:00] LABS: CHLAM PCR NOT DETECTED (NOT DETECT)
[2019-12-08 09:28] LABS: PATH REVIEW PATHOLOGIST REVIEWED
== END 2019-12-07 16:22 | disposition home or self-care (01) ==
LOC: ER 12:15
DX: N93.9 Abnormal uterine and vaginal bleeding, unspecified (principal); N76.0 Acute vaginitis; B96.89 Other specified bacterial agents as the cause of diseases classified elsewhere; D64.9 Anemia, unspecified; R42 Dizziness and giddiness; R10.2 Pelvic and perineal pain; J45.909 Unspecified asthma, uncomplicated; F12.10 Cannabis abuse, uncomplicated
CPT/HCPCS: 36415; 76830; 80053; 81001; 81025; 85025; 86850; 86900; 86901; 87210; 87491; 87591; 93976; 99284

== ENCOUNTER 2020-05-21 14:31 | Emergency (ER) | payer MEDICAID | END 2020-05-21 15:30 | disposition left against medical advice (07) | LOC: ER 14:31 | DX: Z53.21 Procedure and treatment not carried out due to patient leaving prior to being seen by health care provider (principal); R50.9 Fever, unspecified; M79.10 Myalgia, unspecified site ==

== ENCOUNTER 2020-05-24 08:56 | Emergency (ER) | payer MEDICAID ==
[2020-05-24] MEDS ORDERED: ACETAMINOPHEN 325 MG TABLET PO ONE ×2 (09:50→10:06)
[2020-05-24] MEDS ORDERED: NORMAL SALINE 1000 ML 1,000 ML IV ONE (09:50)
[2020-05-24] MEDS ORDERED: RINGERS LACTATED IV ONE (10:32)
[2020-05-24] MEDS ORDERED: ONDANSETRON HCL INJ/PF 4 MG/2 ML SDV IV ONE (10:39)
--- NOTE | 2020-05-24 10:53 | ER Document Report ---
ED Fever - General Chief Complaint: Fever Stated Complaint: FEVER,CHILLS,MUSCLE PAIN Time Seen by Provider: 05/24/20 10:03 Primary Care Provider: ROBERT ARREAGA MD [Primary Care Provider] - Follow up tomorrow Mode of Arrival: Ambulatory Notes: Patient presents with a 2 to 3-day history of fever, chest pain, chills with body aches. Patient denies any cough or abdominal tenderness. Patient does report nausea vomiting diarrhea. Patient states she is vomited 5 times today and had diarrhea once. No blood in the stool or emesis. TRAVEL OUTSIDE OF THE [place] IN LAST 30 DAYS: No - HPI Onset: Other - 3 days Onset/Duration: Gradual Quality of pain: No pain Pain Level: Denies Context: Diarrhea, Nausea/vomiting Associated symptoms: Chills, Diarrhea, Fever. denies: Nonproductive cough, Productive cough, Shortness of breath Similar symptoms previously: No Recently seen / treated by doctor: No - Related Data Allergies/Adverse Reactions: No Known Allergies Allergy (Verified 12/07/19 12:19) Past Medical History - General Information source: Patient - Social History Smoking Status: Never Smoker Frequency of alcohol use: None Drug Abuse: None Occupation: [employer] with: Family Family History: Reviewed & Not Pertinent Pulmonary Medical History: Reports: Hx Asthma Renal/ Medical History: Denies: Hx Peritoneal Dialysis Psychiatric Medical History: Reports: Hx Anxiety, Hx Attention Deficit Hypera ctivity Disorder Comment Only: Hx Depression - Patient denies a history of depression Past Surgical History: Reports: Hx Section - Immunizations Immunizations up to date: Yes Hx Diphtheria, Pertussis, Tetanus Vaccination: Yes Review of Systems - Review of Systems Constitutional: Chills, Fever EENT: No symptoms reported. denies: Throat pain Cardiovascular: Chest pain. denies: Syncope, Dizziness Respiratory: denies: Cough Gastrointestinal: Diarrhea, Nausea, Vomiting. denies: Abdominal pain Genitourinary: No symptoms reported. denies: Dysuria Female Genitourinary: No symptoms reported Musculoskeletal: No symptoms reported Skin: No symptoms reported Hematologic/Lymphatic: No symptoms reported Neurological/Psychological: No symptoms reported Physical Exam - Vital signs Vitals: Temp Pulse Resp BP Pulse Ox 102.9 F H 120 H 15 131/80 H 100 05/24/20 09:00 05/24/20 09:00 05/24/20 09:00 05/24/20 09:00 05/24/20 09:00 - Notes Notes: PHYSICAL EXAMINATION: GENERAL: Well-appearing and in no acute distress. HEAD: Atraumatic, normocephalic. EYES: Pupils equal round and reactive to light, extraocular movements intact, sclera anicteric, conjunctiva are normal. ENT: nares patent, oropharynx clear without exudates. Moist mucous membranes. NECK: Normal range of motion, supple without lymphadenopathy LUNGS: Anterior chest wall tenderness, not reproducible with palpation. CTAB and equal. No wheezes rales or rhonchi. HEART: Regular rate and rhythm without murmurs ABDOMEN: Soft, no tenderness. No guarding, no rebound EXTREMITIES: Normal range of motion, no pitting edema. No cyanosis. BACK: No midline tenderness, no step-off or deformity. NEUROLOGICAL: Cranial nerves grossly intact. Normal speech. PSYCH: Normal mood, normal affect. SKIN: Warm, Dry, normal turgor, no rashes or lesions noted Course - Re-evaluation Re-evalutation: 05/24/20 13:38 Patient with leukopenia with chronic anemia. Review of patient's previous labs demonstrates that she has chronically had a low hemoglobin. Patient states she does have heavy menstrual periods and is not on any supplemental iron. Patient without any additional vomiting. Abdomen soft, nontender. Presentation of chest pain in an otherwise well appearing patient. Low clinical suspicion for ACS given clinical history, exam, EKG without ST elevations or depressions, and negative initial troponin. HEART score less than or equal to 3. PE also seems unlikely given clinical history, absence dyspnea. Patient was initially tachycardic although she was febrile at the time. After patient defervesced tachycardia resolved. CXR without evidence of pneumothorax or pneumonia. No widened mediastinum. Patient encouraged to follow-up with her primary doctor for follow-up regarding her anemia as well as here leukopenia. Patient will be COVID tested. The patient was evaluated during the global Covid 19 pandemic, and that diagnosis was suspected/considered upon their initial presentation. Their evaluation, treatment and testing was consistent with current guidelines for patients who present with complaints or symptoms that may be related to Covid 19. Chest pain in a patient without evidence of cardiac or other serious etiology on workup today. I discussed with patient that, based on their age, risk factors an d emergency department testing today, the likelihood that their symptoms are related to a heart attack is very low. The patient demonstrates decision making capacity and has verbalized an understanding of these risks to me. Based on this, the patient has chosen to follow-up as an outpatient. Usual chest pain return precautions reviewed. The patient states understanding and agreement with this plan. Patient presents with worrisome for possible Covid 19. Patient does not have emergency worrying symptoms such as difficulty breathing, shortness of breath, chest pain, pressure, confusion or cyanosis. Patient appears suitable for discharge as they are not of an advanced age, do not have any chronic medical conditions such as diabetes, CAD, immune deficiency, or chronic kidney disease. Patient's vital signs are stable and patient is nontoxic in appearance. Good return precautions have been discussed with patient, patient verbalized understanding and is agreeable with discharge plan of care at this time. - Vital Signs Vital signs: Temp Pulse Resp BP Pulse Ox 99.1 F 91 17 112/68 98 05/24/20 14:22 05/24/20 14:22 05/24/20 14:22 05/24/20 14:22 05/24/20 14:22 - Laboratory Result Diagrams: 05/24/20 10:21 05/24/20 10:21 Laboratory results interpreted by me: 05/24/20 05/24/20 05/24/20 10:21 10:21 11:28 WBC 2.6 L Hgb 8.3 L Hct 27.2 L MCV 59 L MCH 18.2 L MCHC 30.6 L RDW 21.0 H Abs Neuts (Manual) 1.6 L Sodium 132.1 L Potassium 3.3 L Chloride 95 L Glucose 111 H AST 44 H Creatine Kinase 158 H Total Protein 8.4 H Urine Ketones TRACE H Urine Blood MODERATE H Labs- All tests 24 hr 05/24/20 05/24/20 05/24/20 10:21 10:21 10:21 WBC 2.6 L RBC 4.58 Hgb 8.3 L Hct 27.2 L MCV 59 L MCH 18.2 L MCHC 30.6 L RDW 21.0 H Plt Count 225 Lymph % (Auto) Not Reportable [place] % (Auto) Not Reportable Eos % (Auto) Not Reportable Baso % (Auto) Not Reportable Absolute Neuts (auto) Not Reportable Absolute Lymphs (auto) Not Reportable Absolute Monos (auto) Not Reportable Absolute Eos (auto) Not Reportable Absolute Basos (auto) Not Reportable Total Counted 100 Seg Neutrophils % Not Reportable Seg Neuts % (Manual) 56 Band Neutrophils % 5 Lymphocytes % (Manual) 27 Atypical Lymphs % 2 Monocytes % (Manual) 9 Eosinophils % (Manual) 0 Basophils % (Manual) 0 Metamyelocytes % 1 Abs Neuts (Manual) 1.6 L Abs Lymphs (Manual) 0.8 Abs Monocytes (Manual) 0.2 Absolute Eos (Manual) 0.0 Abs Basophils (Manual) 0.0 Toxic Granulation SLIGHT Clumped Platelets PRESENT Large Platelets PRESENT Platelet Comment ADEQUATE Polychromasia 1+ Hypochromasia 2+ Poikilocytosis 2+ Anisocytosis 3+ Microcytosis 4+ Target Cells SLIGHT Tear Drop Cells 1+ Ovalocytes 2+ Acanthocytes (Spur) 1+ Schistocytes SLIGHT PT INR Sodium 132.1 L Potassium 3.3 L Chloride 95 L Carbon Dioxide 24 Anion Gap 13 BUN 9 Creatinine 0.67 Est GFR ( Amer) > 60 Est GFR (MDRD) Non-Af > 60 Glucose 111 H Lactic Acid Calcium 8.6 Magnesium Total Bilirubin 0.6 Direct Bilirubin 0.0 Neonat Total Bilirubin Not Reportable Neonat Direct Bilirubin Not Reportable Neonat Indirect Bili Not Reportable AST 44 H ALT 19 Alkaline Phosphatase 67 Creatine Kinase 158 H CK-MB (CK-2) < 0.22 Troponin I < 0.012 Total Protein 8.4 H Albumin 4.5 Serum HCG, Qual Urine Color Urine Appearance Urine pH Ur Specific [place] Urine Protein Urine Glucose (UA) Urine Ketones Urine Blood Urine Nitrite Urine Bilirubin Urine Urobilinogen Ur Leukocyte Esterase Urine WBC (Auto) Squamous Epi Cells Auto Urine Mucus (Auto) Urine Ascorbic Acid Group A Strep Rapid 05/24/20 05/24/20 05/24/20 10:21 10:21 10:21 WBC RBC Hgb Hct MCV MCH MCHC RDW Plt Count Lymph % (Auto) [place] % (Auto) Eos % (Auto) Baso % (Auto) Absolute Neuts (auto) Absolute Lymphs (auto) Absolute Monos (auto) Absolute Eos (auto) Absolute Basos (auto) Total Counted Seg Neutrophils % Seg Neuts % (Manual) Band Neutrophils % Lymphocytes % (Manual) Atypical Lymphs % Monocytes % (Manual) Eosinophils % (Manual) Basophils % (Manual) Metamyelocytes % Abs Neuts (Manual) Abs Lymphs (Manual) Abs Monocytes (Manual) Absolute Eos (Manual) Abs Basophils (Manual) Toxic Granulation Clumped Platelets Large Platelets Platelet Comment Polychromasia Hypochromasia Poikilocytosis Anisocytosis Microcytosis Target Cells Tear Drop Cells Ovalocytes Acanthocytes (Spur) Schistocytes PT 14.3 INR 1.09 Sodium Potassium Chloride Carbon Dioxide Anion Gap BUN Creatinine Est GFR ( Amer) Est GFR (MDRD) Non-Af Glucose Lactic Acid 0.8 Calcium Magnesium Total Bilirubin Direct Bilirubin Neonat Total Bilirubin Neonat Direct Bilirubin Neonat Indirect Bili AST ALT Alkaline Phosphatase Creatine Kinase CK-MB (CK-2) Troponin I Total Protein Albumin Serum HCG, Qual NEGATIVE Urine Color Urine Appearance Urine pH Ur Specific [place] Urine Protein Urine Glucose (UA) Urine Ketones Urine Blood Urine Nitrite Urine Bilirubin Urine Urobilinogen Ur Leukocyte Esterase Urine WBC (Auto) Squamous Epi Cells Auto Urine Mucus (Auto) Urine Ascorbic Acid Group A Strep Rapid 05/24/20 05/24/20 05/24/20 10:21 11:10 11:28 WBC RBC Hgb Hct MCV MCH MCHC RDW Plt Count Lymph % (Auto) [place] % (Auto) Eos % (Auto) Baso % (Auto) Absolute Neuts (auto) Absolute Lymphs (auto) Absolute Monos (auto) Absolute Eos (auto) Absolute Basos (auto) Total Counted Seg Neutrophils % Seg Neuts % (Manual) Band Neutrophils % Lymphocytes % (Manual) Atypical Lymphs % Monocytes % (Manual) Eosinophils % (Manual) Basophils % (Manual) Metamyelocytes % Abs Neuts (Manual) Abs Lymphs (Manual) Abs Monocytes (Manual) Absolute Eos (Manual) Abs Basophils (Manual) Toxic Granulation Clumped Platelets Large Platelets Platelet Comment Polychromasia Hypochromasia Poikilocytosis Anisocytosis Microcytosis Target Cells Tear Drop Cells Ovalocytes Acanthocytes (Spur) Schistocytes PT INR Sodium Potassium Chloride Carbon Dioxide Anion Gap BUN Creatinine Est GFR ( Amer) Est GFR (MDRD) Non-Af Glucose Lactic Acid Calcium Magnesium 2.1 Total Bilirubin Direct Bilirubin Neonat Total Bilirubin Neonat Direct Bilirubin Neonat Indirect Bili AST ALT Alkaline Phosphatase Creatine Kinase CK-MB (CK-2) Troponin I Total Protein Albumin Serum HCG, Qual Urine Color STRAW Urine Appearance CLEAR Urine pH 7.0 Ur Specific [place] 1.003 Urine Protein NEGATIVE Urine Glucose (UA) NEGATIVE Urine Ketones TRACE H Urine Blood MODERATE H Urine Nitrite NEGATIVE Urine Bilirubin NEGATIVE Urine Urobilinogen NEGATIVE Ur Leukocyte Esterase NEGATIVE Urine WBC (Auto) 0 Squamous Epi Cells Auto <1 Urine Mucus (Auto) RARE Urine Ascorbic Acid NEGATIVE Group A Strep Rapid NEGATIVE - Diagnostic Test Radiology reviewed: Reports reviewed Discharge - Discharge Clinical Impression: Encounter for screening laboratory testing for COVID-19 virus, Nausea vomiting and diarrhea, Myalgia Fever Qualifiers: Fever type: unspecified Qualified Code(s): R50.9 - Fever, unspecified Leukopenia Qualifiers: Leukopenia type: unspecified Qualified Code(s): D72.819 - Decreased white blood cell count, unspecified Chest pain Qualifiers: Chest pain type: unspecified Qualified Code(s): R07.9 - Chest pain, unspecified Anemia Qualifiers: Anemia type: unspecified type Qualified Code(s): D64.9 - Anemia, unspecified Condition: Stable Disposition: HOME, SELF-CARE Instructions: COVID-19 Guidance for Persons Under Investigation, Anemia ([facility]), Chest Pain of Unclear Cause ([facility]) Additional Instructions: Return immediately for any new or worsening symptoms Followup with your primary care provider, call tomorrow to make a followup appointment Your blood work showed that you are anemic and had a low white blood cell count. You should follow-up with a primary doctor to have this reevaluated. VOMITING: Vomiting (or nausea without vomiting) can be caused by many other different problems. It can mean that something's wrong with the stomach, such as ulcers or inflammation or the intestinal tract, such as appendicitis. But it can also be a symptom of a problem that has nothing to do with the stomach or intestines. Vomiting is common with severe headaches, earaches, tonsillitis, and kidney infections, etc. We see it with pneumonia or heart attacks. Drugs can cause nausea and vomiting. Many abdominal problems cause vomiting; for example, gallstones, kidney stones, pancreatitis, and intestinal obstruction (blocked bowels). In most cases, curing the vomiting depends on fixing the problem that caused it. For temporary relief, we may use an anti-nausea medicine. For home use, we can prescribe suppositories, chewable pills, pills that dissolve in the mouth, or liquid anti-nausea drugs. If the vomiting seems to be caused by a problem in the stomach, acid-suppressing drugs may be prescribed as well. It's important to avoid dehydration. Sip small amounts of clear liquids (soft drinks, tea, broth, etc) . Try to take fluids frequently even if you are vomiting to prevent dehydration. Take increasing amounts of fluid and when liquids are being consumed successfully, advance to small amounts of bland food (toast, soups, mashed potatoes, etc.) until you are able to resume a regular diet. Avoid aspirin, tobacco, and alcohol. If the vomiting worsens, if the problem that's making you vomit worsens, or if there's evidence of bleeding in the stomach (such as black, tarry stool, or bloody or black vomit), you should return immediately. Also, return if abdominal pain worsens or becomes localized to one area or you develop high fever. Call your doctor if you aren't improved in 24 hours. DIARRHEA, NON-SPECIFIC: Diarrhea means frequent, watery stools. There are many causes. Any problem that keeps the intestinal tract from absorbing water from the stool can lead to diarrhea. A sudden new diarrhea problem is usually caused by a virus, food sensitivity, toxic bacteria, or drugs. In this case, we expect the problem to go away soon. Testing is done only if you seem seriously ill from the diarrhea. If you have chronic diarrhea, or diarrhea that keeps coming back, we need to find out why. Chronic diarrhea can be due to inflammation of the bowels such as Crohn's disease or ulcerative colitis, food sensitivity such as intolerance to lactose or wheat protein, irritable bowel syndrome, and other problems. If your diarrhea is a significant problem but it's not clear why you have it, we'll refer you to a specialist for further testing. During an episode of diarrhea, drink small amounts (two to six ounces) of clear liquids (soft drinks, sport drinks, herb teas, broth, etc). Take fluids frequently to prevent dehydration. It's usually not a problem to take mild anti- diarrhea medication such as Kaopectate or Pepto-Bismol. As the diarrhea eases, advance to small amounts of bland food (mashed potato, toast) for 24 hours. Call the physician if blood appears in your vomit or stool, if vomiting lasts longer than 24 hours, if the abdominal pain worsens or becomes localized to one area, if you develop high fever, or if you become lightheaded and weak. VIRAL SYNDROME: The physician has diagnosed a viral infection. Viruses not only cause "colds," but can cause many different symptoms including generalized aching, fever, headache, cough, diarrhea, nausea, vomiting, and fatigue. The treatment, for the most part, is simply relief of symptoms. This means that antibiotics are usually not given. Rest, fluids, pain medications and, occasionally, medication for the specific symptoms that are most bothersome will be prescribed. Use good handwashing to avoid passing the virus to others. Shared toys should be cleaned with disinfectant. Clean the toilets, sinks, and counter surfaces in bathrooms. Launder clothing in hot water. Contact the physician if you develop any new or unusual symptoms such as severe headache, stiff neck, high fever, chest pain, productive cough, or shortness of breath. You should be rechecked if you don't see marked improvement within seven to 10 days. INTRAVENOUS (I V) FLUIDS: As part of your care today, you received intravenous (IV) fluids. IV fluids are administered to patients who are dehydrated or to those who have certain chemical (electrolyte) abnormalities that need correcting. ANTINAUSEA MEDICATION: You have been given a medication to suppress nausea and vomiting. This type of medication can be given as a shot, pill, or suppository. It will usually last for many hours. Pills and shots usually last six to eight hours. For the typical illness, only one or two doses of the medication may be necessary. Mild lightheadedness may occur. This type of medicine can cause drowsine ss. Do not drive or operate dangerous machinery while under its influence. Do not mix with alcohol. See your doctor at once if you have muscle spasms or tightness, or uncontrollable motions (particularly of the neck, mouth, or jaw). Persistent vomiting or severe lightheadedness should also be evaluated by the physician. FOLLOW-UP CARE: If you have been referred to a physician for follow-up care, call the physicians office for an appointment as you were instructed or within the next two days. If you experience worsening or a significant change in your symptoms, notify the physician immediately or return to the Emergency Department at any time for re-evaluation. Prescriptions: Ferrous Sulfate [Feosol 325 mg Tablet] 325 mg PO BID #60 tablet Ondansetron [Zofran Odt 4 mg Tablet] 1 tab PO Q6H #15 tab.rapdis Forms: Return to Work Referrals: ROBERT ARREAGA MD [Primary Care Provider] - Follow up tomorrow
--- NOTE | 2020-05-24 10:53 | RADIOLOGY REPORT (SQ) ---
EXAM DESCRIPTION: CHEST SINGLE VIEW IMAGES COMPLETED DATE/TIME: 05/24/2020 10:44 am REASON FOR STUDY: chest pain COMPARISON: 08/02/2019 EXAM PARAMETERS: NUMBER OF VIEWS: One view. TECHNIQUE: Single frontal radiographic view of the chest acquired. RADIATION DOSE: NA LIMITATIONS: None. FINDINGS: LUNGS AND PLEURA: No opacities, masses or pneumothorax. No pleural effusion. MEDIASTINUM AND HILAR STRUCTURES: No masses. Contour normal. HEART AND VASCULAR STRUCTURES: Heart normal in size. Normal vasculature. BONES: No acute findings. HARDWARE: None in the chest. OTHER: No other significant finding. IMPRESSION: Normal chest radiograph. TECHNICAL DOCUMENTATION: JOB ID: [id number] 2010 [employer]- All Rights Reserved Reading location - IP/workstation name: [email or web address]
[2020-05-24 11:03] LABS: HEMATOCRIT 27.2 % (36.0-47.0); HEMOGLOBIN 8.3 g/dL (12.0-15.5); MEAN CORPUSCULAR HEMOGLOBIN 18.2 pg (27.0-33.4); MEAN CORPUSCULAR HGB CONC 30.6 g/dL (32.0-36.0); RED BLOOD COUNT 4.58 10^6/uL (3.72-5.28); WHITE BLOOD COUNT 2.6 10^3/uL (4.0-10.5)
[2020-05-24 11:05] LABS: INTERNATIONAL RATION (INR) 1.09; PROTHROMBIN TIME 14.3 SEC (11.4-15.4)
[2020-05-24 11:12] LABS: ALBUMIN 4.5 g/dL (3.5-5.0); ALKALINE PHOSPHATASE 67 U/L (38-126); ANION GAP 13 (5-19); ASPARTATE AMINO TRANSFERASE 44 U/L (14-36); BILIRUBIN,TOTAL 0.6 mg/dL (0.2-1.3); BLOOD UREA NITROGEN 9 mg/dL (7-20); CALCIUM 8.6 mg/dL (8.4-10.2); CARBON DIOXIDE 24 mmol/L (22-30); CHLORIDE 95 mmol/L (98-107); CREATINE KINASE 158 U/L (30-135); GLUCOSE 111 mg/dL (75-110); POTASSIUM 3.3 mmol/L (3.6-5.0); TOTAL PROTEIN 8.4 g/dL (6.3-8.2)
[2020-05-24 11:24] LABS: CREATINE KINASE MB < 0.22 ng/mL (<4.55); TROPONIN I < 0.012 ng/mL
[2020-05-24 11:31] LABS: ABSOLUTE LYMPHOCYTES# (MANUAL) 0.8 10^3/uL (0.5-4.7); ABSOLUTE MONOCYTES # (MANUAL) 0.2 10^3/uL (0.1-1.4); BAND NEUTROPHILS % (MANUAL) 5 % (3-5); BASOPHILS % (MANUAL) 0 % (0-2); EOSINOPHILS % (MANUAL) 0 % (0-6); LYMPHOCYTES % (MANUAL) 27 % (13-45); METAMYELOCYTES % (MANUAL) 1 % (0-1); MONOCYTES % (MANUAL) 9 % (3-13); SEGMENTED NEUTROPHILS % (MAN) 56 % (42-78); TOTAL CELLS COUNTED 100
[2020-05-24 11:34] LABS: ANISOCYTOSIS 3+; HYPOCHROMASIA 2+; POIKILOCYTOSIS 2+; POLYCHROMASIA 1+; TOXIC GRANULATION SLIGHT
[2020-05-24 11:35] LABS: OVALOCYTES 2+; PLATELET CLUMPS PRESENT; PLATELET COMMENT ADEQUATE; PLATELET LARGE PRESENT; SCHISTOCYTES SLIGHT; TARGET CELLS SLIGHT; TEAR DROP CELLS 1+
[2020-05-24 11:37] LABS: MEAN CORPUSCULAR VOLUME 59 fl (80-97)
[2020-05-24 11:38] LABS: PLATELET COUNT 225 10^3/uL (150-450)
[2020-05-24] MEDS ORDERED: POTASSIUM CHLORIDE 20 MEQ PACKET PO ONE (12:17)
[2020-05-24 12:46] LABS: APPEARANCE,URINE CLEAR; BILIRUBIN,URINE NEGATIVE (NEGATIVE); COLOR,URINE STRAW; GLUCOSE, URINE NEGATIVE (NEGATIVE); KETONES,URINE TRACE mg/dL (NEGATIVE); LEUKOCYTE ESTERASE,URINE NEGATIVE (NEGATIVE); NITRITE,URINE NEGATIVE (NEGATIVE); PROTEIN,URINE NEGATIVE (NEGATIVE); URINE SPECIFIC GRAVITY 1.003; UROBILINOGEN,URINE NEGATIVE mg/dL (<2.0)
[2020-05-24 14:31] VITALS: BP 112/68
--- NOTE | 2020-05-25 14:07 | EKG REPORT ---
SEVERITY:- BORDERLINE ECG - SINUS TACHYCARDIA BORDERLINE T ABNORMALITIES, INFERIOR LEADS : Confirmed by: Marco Daigle 25-May-2020 14:06:08
[2020-05-27 13:08] LABS: PATH REVIEW PATHOLOGIST REVIEWED
== END 2020-05-24 14:24 | disposition home or self-care (01) ==
LOC: ER 08:56
DX: R50.9 Fever, unspecified (principal); R07.9 Chest pain, unspecified; R19.7 Diarrhea, unspecified; R11.2 Nausea with vomiting, unspecified; D72.829 Elevated white blood cell count, unspecified; D64.9 Anemia, unspecified; M79.10 Myalgia, unspecified site; J45.909 Unspecified asthma, uncomplicated; Z20.828 Contact with and (suspected) exposure to other viral communicable diseases
CPT/HCPCS: 93005; 99285; 96361; 96374; 36415; 87040; 87070; 82553; 87880; 82550; 83605; 83735; 84703; 85025; 85610; 87635; 80053; 81001; 84484; 71045; 93010; J3490 ×2; J2405; J7030; J7120; C9803